=== PATIENT | male | born 1975 | race Caucasian/White ===

== ENCOUNTER 2016-06-16 13:10 | Emergency (ER) | payer BC, OTHER ==
[2016-06-16 13:58] VITALS: RESP 20
[2016-06-16] MEDS ORDERED: MORPHINE SULFATE 4 MG/ML SYRINGE IV STA (15:35)
[2016-06-16] MEDS ORDERED: ONDANSETRON 4 MG/2 ML VIAL IVP STA (15:35)
[2016-06-16] MEDS ORDERED: RX INFO: IV CONTRAST WAS GIVEN 1 EACH MISC MISCELLANE PRN (15:35)
[2016-06-16] MEDS ORDERED: METOCLOPRAMIDE 5 MG/ML 2 ML VIAL IVP STA (15:35)
[2016-06-16] MEDS ORDERED: SODIUM CHLORIDE 0.9% 1,000 ML IV STA ×2 (15:35)
[2016-06-16 16:14] LABS: Appearance,Urine Clear (Clear); Bacteria,Urine Rare /hpf; Basophils % (A) 0 %; Bilirubin,Urine Negative (Negative); CH 33.6; CHCM 34.6; Eosinophils # (A) 0.1 k/uL (0-0.7); Eosinophils % (A) 1 %; Glucose,Urine (UA) Negative (Negative); HCT 54.9 % (39.0-53.0); HDW 2.79; HGB 18.6 gm/dL (13.0-17.5); Ketones,Urine Trace (Negative); Leukocyte Esterase,Urine Negative (Negative); Luc # (Auto) 0.15; Luc % (Auto) 1; Lymphocytes # (A) 0.7 k/uL (1.0-4.8); Lymphocytes % (A) 5 %; MCHC 33.9 g/dL (31.0-37.0); MCV 97.5 fL (80.0-100.0); Monocytes # (A) 0.5 k/uL (0-1.0); Monocytes % (A) 4 %; Mucus,Urine Rare /hpf; Neutrophils # (A) 11.6 k/uL (1.3-7.7); Neutrophils % (A) 89 %; Nitrite,Urine Negative (Negative); Particle Count 3125; Protein,Urine 1+ (Negative); RBC 5.63 m/uL (4.30-5.90); RBC,Urine 1 /hpf (0-5); RDW 12.8 % (11.5-15.5); Specific Gravity,Urine 1.019 (1.001-1.035); Sperm,Urine Occasional /hpf; Squamous Epithelial Cell,Urine <1 /hpf (0-4); UA Billing (MACRO vs. MICRO) MICRO; WBC (Perox) 13.47; WBC,Urine 1 /hpf (0-5)
--- NOTE | 2016-06-16 16:21 | XR ---
EXAMINATION TYPE: XR chest 2V DATE OF EXAM: 06/16/2016 4:08 PM COMPARISON: NONE HISTORY: Vomiting, asthma and pain TECHNIQUE: Frontal and lateral views of the chest are obtained. FINDINGS: There is no focal air space opacity, pleural effusion, or pneumothorax seen. The cardiac silhouette size is within normal limits. There is bronchial wall thickening. The osseous structures are intact. IMPRESSION: Correlate for reactive airways disease, follow-up as indicated
[2016-06-16 16:24] LABS: ALT 57 U/L (21-72); AST 32 U/L (17-59); Alkaline Phosphatase 53 U/L (38-126); Amylase 75 U/L (30-110); Anion Gap 12 mmol/L; Blood Urea Nitrogen 13 mg/dL (9-20); Calcium 9.6 mg/dL (8.4-10.2); Carbon Dioxide 26 mmol/L (22-30); Chloride 104 mmol/L (98-107); Glucose 105 mg/dL (74-99); Non-African American GFR(MDRD) >60 (>60 ml/min/1.73 sqM); Potassium 4.3 mmol/L (3.5-5.1); Sodium 142 mmol/L (137-145); Total Bilirubin 1.2 mg/dL (0.2-1.3); Total Protein 7.9 g/dL (6.3-8.2)
--- NOTE | 2016-06-16 16:42 | CT ---
EXAMINATION TYPE: CT abdomen pelvis w con DATE OF EXAM: 06/16/2016 4:30 PM COMPARISON: 12/03/2015 HISTORY: 41-year-old male with abdominal pain and vomiting. TECHNIQUE: Contiguous axial scanning of the abdomen and pelvis following administration of 100 ml Omn ipaque 300 IV contrast. Delayed images through the kidneys and coronal/sagittal reconstructions perf ormed. CT DLP: 806.3 mGycm Automated exposure control for dose reduction was used. FINDINGS: Heart is normal size without pericardial effusion. There is a tiny hiatal hernia. Some strandy atelec tasis at the lung bases without pleural effusion. Relatively diminished attenuation of the hepatic parenchyma on portal venous phase in comparison to t he spleen suggests fatty infiltration. No biliary ductal dilatation. Portal venous system is patent. There is a diverticulum of the second portion of the duodenum projecting into the pancreatic head reg ion. Gallbladder, adrenal glands, kidneys, spleen, pancreas appear within normal limits. Scattered nonenlarged and a few borderline enlarged mesenteric lymph nodes measuring up to 6 mm, mylene nal image 37. Tiny fatty umbilical hernia. Normal appendix. Small mesenteric lymph nodes are noted near the cecum. There is mild to moderate sto ol in the colon and prominent fluid-filled small bowel loops in the mid to lower abdomen. There may b e some mild circumferential wall thickening of the distal sigmoid or this could relate to incomplete distention. Circumferential bladder wall thickening is also present. No abnormal fluid collection in the pelvis o r pelvic lymphadenopathy seen. Bones: There can deformities at the femoral head neck junctions with PA reflect femoral acetabular im pingement syndrome and can be correlated with physical exam testing. No osseous destructive process. IMPRESSION: 1. SOME PROMINENT FLUID-FILLED SMALL BOWEL LOOPS IN THE LOWER ABDOMEN AND PELVIS COULD REFLECT ENTERI TIS, GASTROENTERITIS. 2. ADDITIONALLY MILD DISTAL SIGMOID COLITIS VERSUS APPARENT WALL THICKENING DUE TO UNDERDISTENTION. 3. THERE IS MODERATE CIRCUMFERENTIAL BLADDER WALL THICKENING AND CORRELATION SHOULD BE MADE FOR CHRON IC BLADDER WALL HYPERTROPHY OR CYSTITIS. 4. HEPATIC STEATOSIS. CORRELATE WITH LFT's, LIPID PROFILE, INCREASED RISK FACTORS.
--- NOTE | 2016-06-16 18:01 | ED ---
General Adult HPI - General Chief complaint: Nausea/Vomiting/Diarrhea Stated complaint: Vomiting Time Seen by Provider: 06/16/16 15:29 Source: patient Mode of arrival: ambulatory - History of Present Illness Initial comments: This 41-year-old white male presents with a complaint of nausea and vomiting. This started at approximately 8:30 this morning and he is had 12+ episodes of vomiting. He states that it was brown and yellowish in nature. He apparently vomited quite vigorously and also is having some bilateral rib pain. He's had some mild lower abdominal cramping as well. He denies any actual diarrhea or fevers. He denies any blood in his vomitus. No other complaints or modifying factors. He apparently was exposed to someone 2 days ago that had gastroenteritis. - Related Data Home Medications Medication Instructions Recorded Confirmed Allopurinol [Zyloprim] 100 mg PO DAILY 12/03/15 06/16/16 Cetirizine HCl [Zyrtec] 10 mg PO DAILY 12/03/15 06/16/16 Cyclobenzaprine [Flexeril] 10 mg PO HS 12/03/15 06/16/16 Fluticasone Nasal [place] [Flonase 1 spray EA NOSTRIL DAILY 12/03/15 06/16/16 Nasal [place]] Gabapentin [Neurontin] 300 mg PO TID PRN 12/03/15 06/16/16 Omeprazole 20 mg PO DAILY 12/03/15 06/16/16 oxyCODONE-APAP 10-325MG [Percocet 1 tab PO BID PRN 12/03/15 06/16/16 10-325 mg] Albuterol Inhaler [Ventolin Hfa 1 - 2 puff INHALATION RT-Q6H PRN 06/16/16 Inhaler] Albuterol Nebulized [Ventolin 2.5 mg INHALATION RT-Q4H PRN 06/16/16 06/16/16 Nebulized] L.acidoph,Paracasei, B.lactis 1 cap PO DAILY 06/16/16 06/16/16 [Probiotic] Previous Rx's Medication Instructions Recorded Dicyclomine [Bentyl] 20 mg PO QID PRN #20 tablet 06/16/16 Ondansetron [Zofran ODT] 8 mg PO Q8HR PRN #12 tab 01/24/17 Allergies Allergy/AdvReac Type Severity Reaction Status Date / Time No Known Allergies Allergy Verified 06/16/16 15:17 Review of Systems ROS Statement: Those systems with pertinent positive or pertinent negative responses have been documented in the HPI. ROS Other: All systems not noted in ROS Statement are negative. Past Medical History Past Medical History: Asthma Additional Past Medical History / Comment(s): diverticulitis History of Any Multi-Drug Resistant Organisms: None Reported Past Surgical History: No Surgical Hx Reported Past Psychological History: No Psychological Hx Reported Smoking Status: Former smoker Past Alcohol Use History: Occasional Past Drug Use History: None Reported General Exam - General Exam Comments Initial Comments: GENERAL: The patient is well nourished and well hydrated. VITAL SIGNS: Heart rate, blood pressure, respiratory rate reviewed as recorded in nurse's notes. EYES: Pupils are round and reactive. Extraocular movements are intact. No conjunctival / lid redness or swelling. ENT: No external evidence of injury, swelling, or ecchymosis. Airway is patent. Throat is clear. NECK: Nontender. No swelling or evidence of injury. No subcutaneous emphysema. Trachea is midline. No thyroid mass. HEART: Regular rate and rhythm. Good peripheral pulses. LUNGS/CHEST: Breath sounds clear and equal bilaterally. No rales, rhonchi, or wheezes. No ecchymosis, subcutaneous emphysema, or tenderness. ABDOMEN: There is very minimal tenderness noted to the bilateral lower abdomen. Abdomen is soft. No palpable masses or organomegaly. No peritoneal signs. No abdominal wall swelling or ecchymosis. EXTREMITIES: No extremity tenderness. Normal muscle tone and function. No thoracolumbar tenderness. NEUROLOGIC: Sensation is grossly intact. Cranial nerve exam reveals face is symmetrical, tongue is midline, speech is clear. SKIN: No abrasions or ecchymosis is noted. No induration or masses noted. PSYCHIATRIC: Alert and oriented. Appropriate behavior and judgment. Course Vital Signs 06/16/16 13:55 Temperature 98.1 F Pulse Rate 123 H Respiratory 20 Rate Blood Pressure 117/77 O2 Sat by Pulse 98 Oximetry Medical Decision Making - Medical Decision Making The patient was seen and examined. An IV was started and he was thoroughly hydrated. He received some Zofran and Reglan for the nausea. He is feeling remarkably improved on recheck. He had a computed tomography scan of the abdomen and pelvis which shows evidence of gastroenteritis. Is a questionable sigmoid colitis but it is felt as though this is doubtful as he is not having any diarrhea. They also see some bladder wall thickening but there is no current evidence of urinary infection. They also note hepatic steatosis per radiology. His labs show a slight elevation of his white count which I will see regularly and a gastroenteritis. His urine shows some ketones and sperm. Overall, it is felt as though his symptoms primarily are related to gastroenteritis which is been epidemic in her region recently. Is felt as though he is stable for discharge. He understands and agrees. Diet therapy is discussed and he lives in no distress. - Lab Data Result diagrams: 06/16/16 15:59 06/16/16 15:59 Lab Results 06/16/16 06/16/16 06/16/16 Range/Units 15:59 15:59 15:59 WBC 13.0 H (3.8-10.6) k/uL RBC 5.63 (4.30-5.90) m/uL Hgb 18.6 H (13.0-17.5) gm/dL Hct 54.9 H (39.0-53.0) % MCV 97.5 (80.0-100.0) fL MCH 33.0 (25.0-35.0) pg MCHC 33.9 (31.0-37.0) g/dL RDW 12.8 (11.5-15.5) % Plt Count 185 (150-450) k/uL Neutrophils % 89 % Lymphocytes % 5 % Monocytes % 4 % Eosinophils % 1 % Basophils % 0 % Neutrophils # 11.6 H (1.3-7.7) k/uL Lymphocytes # 0.7 L (1.0-4.8) k/uL Monocytes # 0.5 (0-1.0) k/uL Eosinophils # 0.1 (0-0.7) k/uL Basophils # 0.0 (0-0.2) k/uL Sodium 142 (137-145) mmol/L Potassium 4.3 (3.5-5.1) mmol/L Chloride 104 (98-107) mmol/L Carbon Dioxide 26 (22-30) mmol/L Anion Gap 12 mmol/L BUN 13 (9-20) mg/dL Creatinine 0.97 (0.66-1.25) mg/dL Est GFR (MDRD) Af Amer >60 (>60 ml/min/1.73 sqM) Est GFR (MDRD) Non-Af >60 (>60 ml/min/1.73 sqM) Glucose 105 H (74-99) mg/dL Calcium 9.6 (8.4-10.2) mg/dL Total Bilirubin 1.2 (0.2-1.3) mg/dL AST 32 (17-59) U/L ALT 57 (21-72) U/L Alkaline Phosphatase 53 (38-126) U/L Total Protein 7.9 (6.3-8.2) g/dL Albumin 4.8 (3.5-5.0) g/dL Amylase 75 (30-110) U/L Lipase 288 (23-300) U/L Urine Color Yellow Urine Appearance Clear (Clear) Urine pH 7.0 (5.0-8.0) Ur Specific [place] 1.019 (1.001-1.035) Urine Protein 1+ H (Negative) Urine Glucose (UA) Negative (Negative) Urine Ketones Trace H (Negative) Urine Blood Negative (Negative) Urine Nitrate Negative (Negative) Urine Bilirubin Negative (Negative) Urine Urobilinogen 2.0 (<2.0) mg/dL Ur Leukocyte Esterase Negative (Negative) Urine RBC 1 (0-5) /hpf Urine WBC 1 (0-5) /hpf Ur Squamous Epith Cells <1 (0-4) /hpf Urine Bacteria Rare H (None) /hpf Urine Mucus Rare H (None) /hpf Urine Sperm Occasional H (None) /hpf Disposition Clinical Impression: Dehydration, Gastroenteritis, Nausea and vomiting Disposition: HOME SELF-CARE Condition: Good Instructions: Acute Nausea and Vomiting (ED), Gastroenteritis (ED) Prescriptions: Dicyclomine [Bentyl] 20 mg PO QID PRN #20 tablet PRN Reason: Pain Ondansetron [Zofran ODT] 8 mg PO Q8HR PRN #12 tab PRN Reason: Nausea Referrals: Fareed Mazariegos MD [Primary Care Provider] - 1-2 days Time of Disposition: 18:00
[2016-06-16 18:12] VITALS: BP 122/83; PULSE 105; TEMP 97.9
== END 2016-06-16 18:10 | disposition home or self-care (01) ==
LOC: EC 13:10
DX: E86.0 Dehydration (principal); K52.9 Noninfective gastroenteritis and colitis, unspecified; Z79.899 Other long term (current) drug therapy; Z79.51 Long term (current) use of inhaled steroids; Z87.891 Personal history of nicotine dependence; K76.0 Fatty (change of) liver, not elsewhere classified
CPT/HCPCS: 36415; 80053; 82150; 83690; 85025; 81001; 71020; 74177; 99284; J2270; J2765; J2405; Q9967

== ENCOUNTER 2017-08-26 14:10 | Inpatient (IN) | payer BC ==
[2017-08-26] MEDS ORDERED: ALBUTEROL NEBULIZED 2.5 MG/3 ML INHALATION PRN ×2 (16:36→16:39)
[2017-08-26] MEDS ORDERED: ACETAMINOPHEN TAB 325 MG TAB PO PRN (16:42)
[2017-08-26 17:08] LABS: Basophils % (A) 1 %; Eosinophils # (A) 0.1 k/uL (0-0.7); Eosinophils % (A) 2 %; HCT 50.7 % (39.0-53.0); HGB 17.1 gm/dL (13.0-17.5); Lymphocytes % (A) 20 %; MCH 31.3 pg (25.0-35.0); MCHC 33.7 g/dL (31.0-37.0); MCV 92.8 fL (80.0-100.0); Mean Platelet Volume 7.7; Monocytes # (A) 0.3 k/uL (0-1.0); Monocytes % (A) 6 %; Neutrophils # (A) 3.5 k/uL (1.3-7.7); Neutrophils % (A) 69 %; Platelet Count 181 k/uL (150-450); RBC 5.46 m/uL (4.30-5.90); RDW 12.8 % (11.5-15.5); WBC 5.1 k/uL (3.8-10.6)
[2017-08-26 17:10] LABS: Glucose,Whole Blood 115 mg/dL (75-99)
[2017-08-26 17:45] LABS: ALT 40 U/L (21-72); AST 26 U/L (17-59); Alkaline Phosphatase 49 U/L (38-126); Anion Gap 13 mmol/L; Blood Urea Nitrogen 15 mg/dL (9-20); Calcium 9.6 mg/dL (8.4-10.2); Carbon Dioxide 25 mmol/L (22-30); Chloride 105 mmol/L (98-107); Glucose 89 mg/dL (74-99); Sodium 143 mmol/L (137-145); Total Bilirubin 0.6 mg/dL (0.2-1.3); Total Protein 6.7 g/dL (6.3-8.2)
[2017-08-26] MEDS: SODIUM CHLORIDE 0.9% 1,000 ML IV SCH (17:49)
[2017-08-26 18:13] VITALS: BMI 29.1
[2017-08-26] MEDS: INSULIN ASPART 100 UNIT/ML 1 ML 10 ML VIAL SQ SCH ×2 (18:22→21:20)
[2017-08-26] MEDS: cefTRIAXone IN SWFI 1,000 MG/10 ML SYRINGE IVP SCH (18:22)
[2017-08-26] MEDS: ALBUTEROL NEBULIZED 2.5 MG/3 ML INHALATION SCH (19:27)
[2017-08-26 21:01] LABS: Glucose,Whole Blood 126 mg/dL (75-99)
[2017-08-26] MEDS: BACLOFEN 10 MG TAB PO SCH (21:45)
[2017-08-26] MEDS: LACTOBACILLUS ACIDOPH & BULGAR 1 EACH PACKET PO SCH (21:45)
[2017-08-26] MEDS: methylPREDNISolone SOD SUCCI 125 MG/2 ML VIAL IV SCH (23:33)
[2017-08-27] MEDS: SODIUM CHLORIDE 0.9% 1,000 ML IV SCH ×3 (04:17→20:51)
[2017-08-27 07:03] LABS: Glucose,Whole Blood 164 mg/dL (75-99)
[2017-08-27] MEDS: ALBUTEROL NEBULIZED 2.5 MG/3 ML INHALATION SCH ×4 (07:57→22:03)
[2017-08-27] MEDS: ALLOPURINOL 100 MG TAB PO SCH (08:08)
[2017-08-27] MEDS: methylPREDNISolone SOD SUCCI 125 MG/2 ML VIAL IV SCH ×3 (08:08→23:13)
[2017-08-27] MEDS: LACTOBACILLUS ACIDOPH & BULGAR 1 EACH PACKET PO SCH ×2 (08:08→22:13)
[2017-08-27] MEDS: LORATADINE 10 MG TAB PO SCH (08:08)
[2017-08-27] MEDS: BACLOFEN 10 MG TAB PO SCH ×2 (08:08→22:13)
[2017-08-27] MEDS: PANTOPRAZOLE 40 MG TABLET PO SCH (08:08)
[2017-08-27] MEDS: AZITHROMYCIN 500 MG in SODIUM CHLORIDE 0.9% 250 ML IVPB SCH (08:08)
[2017-08-27] MEDS: INSULIN ASPART 100 UNIT/ML 1 ML 10 ML VIAL SQ SCH ×4 (08:09→20:41)
[2017-08-27] MEDS: traMADol 50 MG TAB PO PRN (08:21)
[2017-08-27] MEDS: FLUTICASONE 50MCG/SPRAY NASAL 16GM EA NOSTRIL SCH (09:01)
--- NOTE | 2017-08-27 09:02 | HP ---
HISTORY AND PHYSICAL DATE OF SERVICE: 08/26/2017 CHIEF COMPLAINT: Shortness of breath, cough, and weakness. This is a 42-year-old white male that came in my office with shortness of breath, cough, and weakness with O2 saturation 88 was sitting and decreased to be 84 with minimal activity. He had been short of breath. Had been coughing, weak, and low-grade temp. Of interest to me on physical examination was the coarse amount of not only hard coughing but also copious amount of initial colored phlegm that was brought up. He has a long time past history of bronchial asthma, which has been stable. He has a history of gout, GE reflux, and he has some severe lumbar degenerative disc disease and has been operated on previously. ALLERGIES: His allergies are none. MEDICATIONS: 1. Allopurinol 100, 1 a.m. 2. Omeprazole 20, 1 a.m. 3. Zyrtec 24 hour a.m. 4. Ventolin inhaler or updraft up to 4 times a day. 5. Flonase 50 mg at bedtime. 6. Tylenol at bedtime for back pain. SURGICAL HISTORY: Lumbar discectomy and stabilization completed 2015. FAMILY HISTORY: He has a mother with a history of severe lymphangitis. Father has severe osteoarthritis. He has a sister with asthma and hypothyroid disease. SOCIAL HISTORY: Occasional cigar smoker. Does not inhale per patient. No alcohol. No illicit drug use. Again, he works as a . LABS: WBC is 5.1, hemoglobin is 17. Sodium 143, potassium is 4, creatinine is 1, BUN 14. REVIEW OF SYSTEMS: EYES: Pupils same and he does wear glasses. ENT: Says he has dry mouth. Neck is negative. CHEST: Shortness of breath and cough. CARDIAC: Plus palpitations, plus shortness of breath. No orthopnea. No paroxysmal nocturnal dyspnea. No true chest pain. No history of myocardial infarction. GI: Decreased appetite, but no nausea, no vomiting, no diarrhea, no constipation. No hematemesis, melena or hematochezia. : He says he has had decrease in urination. NEUROMUSCULAR: He expressed the concept of bad back pain, always very difficult to get comfortable lying in bed, but he is a security police officer. Continues to walk all day. Just pain in his buttocks to the mid part of his upper legs with walking from previous lumbar degenerative disc disease. INTEGUMENTARY: Has been negative. ALLERGY: He has had long-standing allergies of which chronic nasal spray has worked well for him. PHYSICAL EXAMINATION: Upon admission, blood pressure is 134/79, heart rate was in the 90s. He had laborious breathing between 18 and 22, temperature is 97.1 at this period of time. On 2 L, he is 96 O2 saturation. On inspection, patient is having some laborious breathing. EYES: Pupils are equal, round, reactive to light and accommodation. ENT shows a very dry mouth. NECK: Supple with midline trachea. CHEST: He has got some coarse rhonchi. He has wheezes throughout with some decreased breath sounds throughout. Heart sinus rhythm with no murmur. ABDOMEN: Soft, nontender with no organomegaly. Lower extremities are basically decreased pulses, decreased upper extremity muscle strength and on inspection, he has a smaller quad on the right than the left, which is still indicative of his previous degenerative disc disease causing initial herniation and he has yet to reverse that atrophy. His pulses in the lower extremities were also decreased in posterior tibialis. PSYCHIATRIC: He is not anxious. He is not nervous. ASSESSMENT: 1. Pneumonia. 2. Acute asthma on chronic asthma. 3. History of gout. 4. Gastroesophageal reflux. PLAN: Continue with the same medications accordingly. Please refer to my orders. MMODL / IJN: [id number] /
--- NOTE | 2017-08-27 09:10 | PN ---
PROGRESS NOTE DATE OF SERVICE: 08/27/2017 The patient is feeling better today. He has had less shortness of breath, less wheezing, but he says he has been very, very weak as it has been reiterated, he is admitted here with bronchial asthma, pneumonia, progressive shortness of breath and weakness and was placed in the hospital, started on IV steroids 60 mg q.6 hours, Rocephin and Zithromax and updrafts. At this period of time, he is doing quite well, but he appears to still be very weak. REVIEW OF SYSTEMS: EYES: He wears glasses. ENT: Still dry mouth. CHEST: He is coughing. He said more than yesterday and actually more wheezing. HEART: No palpitations. No chest pain. GI: Still just a decrease in appetite. NEUROMUSCULAR: He says his legs are weak. SKIN: No problems known, nothing to report. ALLERGIES: He says his nose is very stuffy, but he says the Flonase seems to help. PSYCHIATRIC: He is not anxious. He is not nervous. He said he is just occasionally taking off with using the updraft 4 times a day. PHYSICAL EXAMINATION: At this period of time, he has a blood pressure of 142/80, heart rate is now down in the 80s, respiratory rate is 16, and temperature is 97.2. EYES: Pupils are equal, round, react to light and accommodation. ENT showed tympanic membranes and pharynx to be negative. Neck is supple with a midline trachea. Chest is essentially clear to auscultation. Heart is sinus rhythm with no murmur. Abdomen is soft, nontender with no organomegaly. Chest has rhonchi EXTREMITIES: Negative. ASSESSMENT: 1. Pneumonia. 2. Chronic obstructive pulmonary disease. 3. Hypertension. Please refer to my orders. MMODL / IJN: [id number] /
--- NOTE | 2017-08-27 09:35 | P.PN ---
Progress Note - Text Progress Note Date: 08/27/17 Addendum to H/P: Patient had a chest x-ray completed at Dr. Mazariegos's office on 08/26/2017 revealing bilateral pneumonia. Due to pneumonia, asthma, and respiratory status the patient was directly admitted to the hospital from Dr. Mazariegos's office
--- NOTE | 2017-08-27 09:44 | P.CNPUL ---
History of Present Illness Consult date: 08/27/17 Reason for consult: dyspnea, cough, chest pain, pneumonia Chief complaint: Cuff congestion shortness of breath started 2-3 days ago History of present illness: 42-year-old nonsmoker male fairly in good state of health with a history of the asthma as a young child growing up however had no respiratory symptoms 3 days ago had upper respiratory type of process with cuff congestion shortness of breath has been slowly progressive becomes very short of breath coughing phlegm came into the hospital found to have bilateral perihilar pneumonia patient has been admitted into the hospital further evaluation and intervention and treatment, patient did have a flu shot this year, review of the data reveals that patient presented into primary care office with shortness of breath and cough and low oxygen saturation of only 88% did drop down to 84% with activity and exertion Review of Systems All systems: negative Past Medical History Past Medical History: Asthma, Osteoarthritis (OA) Additional Past Medical History / Comment(s): diverticulitis, spinal OA, arthritis in right knee, hips and hands History of Any Multi-Drug Resistant Organisms: None Reported Past Surgical History: No Surgical Hx Reported, Hernia Repair Additional Past Surgical History / Comment(s): Hernia repair as an Past Anesthesia/Blood Transfusion Reactions: No Reported Reaction Past Psychological History: No Psychological Hx Reported Smoking Status: Former smoker Past Alcohol Use History: Occasional Past Drug Use History: None Reported - Past Family History Mother Family Medical History: Asthma, Cancer, Hypertension Additional Family Medical History / Comment(s): Mother has hx of colon and rectal cancer Father Family Medical History: Hypertension Medications and Allergies Home Medications Medication Instructions Recorded Confirmed Type Allopurinol [Zyloprim] 100 mg PO DAILY 12/03/15 08/26/17 History Cetirizine HCl [Zyrtec] 10 mg PO DAILY 12/03/15 08/26/17 History Fluticasone Nasal [place] [Flonase 2 spray EA NOSTRIL DAILY 12/03/15 08/26/17 History Nasal [place]] Gabapentin [Neurontin] 300 mg PO TID PRN 12/03/15 08/26/17 History Omeprazole 20 mg PO DAILY 12/03/15 08/26/17 History Albuterol Inhaler [Ventolin Hfa 2 puff INHALATION RT-QID PRN 06/16/16 08/26/17 History Inhaler] Albuterol Nebulized [Ventolin 2.5 mg INHALATION RT-QID PRN 06/16/16 08/26/17 History Nebulized] L.acidoph,Paracasei, B.lactis 1 cap PO BID 06/16/16 08/26/17 History [Probiotic] Baclofen [Lioresal] 10 mg PO BID 08/26/17 08/26/17 History Clotrimazole/Betamethasone Dip 1 applic TOPICAL DAILY PRN 08/26/17 08/26/17 History [Lotrisone Cream] Indomethacin [Indocin] 100 mg PO DAILY 08/26/17 08/26/17 History Ondansetron [Zofran] 4 mg PO Q8HR PRN 08/26/17 08/26/17 History traMADol HCL [Ultram] 50 - 100 mg PO Q8H PRN 08/26/17 08/26/17 History Allergies Allergy/AdvReac Type Severity Reaction Status Date / Time No Known Allergies Allergy Verified 08/26/17 16:13 Physical Exam Vitals: Vital Signs Temp Pulse Pulse Pulse Resp BP Pulse Ox 08/27/17 08:08 72 08/27/17 07:58 68 08/27/17 05:36 97.2 F L 89 16 134/79 96 08/26/17 22:27 98.5 F 82 18 136/94 97 08/26/17 19:36 84 08/26/17 19:27 66 08/26/17 18:57 65 20 08/26/17 16:00 97.4 F L 98 18 143/90 96 Intake and Output 08/26/17 08/27/17 08/27/17 22:59 06:59 14:59 Other: Voiding Method Toilet # Voids 1 2 Weight 87 kg - Constitutional General appearance: average body habitus, cooperative, disheveled, mild distress , no acute distress - EENT Eyes: EOMI, PERRLA, normal appearance ENT: normal oropharynx - Neck Neck: normal ROM Carotids: bilateral: upstroke normal, bruit absent Thyroid: bilateral: normal size - Respiratory Respiratory: bilateral: CTA, rhonchi (On force expiration), wheezing (In forced expiration), prolonged expiration, negative: dullness, rales, prolonged inspiration - Cardiovascular Heart sounds: normal: S1, S2 - Neurologic Normal neuro exam Neurologic: CNII-XII intact - Musculoskeletal Musculoskeletal: gait normal, generalized weakness, strength equal bilaterally - Psychiatric Psychiatric: A&O x's 3, appropriate affect, intact judgment & insight Results - Laboratory Findings CBC and BMP: 08/26/17 16:51 08/26/17 16:51 Abnormal lab findings: Abnormal Labs 08/26/17 08/26/17 08/27/17 17:07 20:54 07:01 POC Glucose (mg/dL) 115 H 126 H 164 H - Diagnostic Findings Chest x-ray: report reviewed (Radiographic study chest x-ray verbal report on obtained from the primary service revealed hilar infiltrate) Assessment and Plan Assessment: Bilateral perihilar pneumonia Acute hypoxic respirator failure related to above History of chronic asthma with acute exacerbation History of gout 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
--- NOTE | 2017-08-27 10:20 | XR ---
EXAMINATION TYPE: XR chest 2V DATE OF EXAM: 08/27/2017 COMPARISON: 06/16/2016 TECHNIQUE: PA and lateral views submitted. HISTORY: Cough and pneumonia FINDINGS: There is a perihilar interstitial pattern patchy infiltrate in the right. Tiny left pleural effusion noted. No pneumothorax. Heart size stable. IMPRESSION: 1. Perihilar interstitial pattern can be seen with bronchitis, atypical pneumonia, interstitial pneum onitis or venous congestion correlate clinically.
[2017-08-27 11:55] LABS: Glucose,Whole Blood 230 mg/dL (75-99)
[2017-08-27 13:11] LABS: Hemoglobin A1C 5.1 % (4.0-6.0)
[2017-08-27] MEDS: cefTRIAXone IN SWFI 1,000 MG/10 ML SYRINGE IVP SCH (15:43)
[2017-08-27 17:28] LABS: Glucose,Whole Blood 124 mg/dL (75-99)
[2017-08-27 20:32] LABS: Glucose,Whole Blood 214 mg/dL (75-99)
[2017-08-28 07:31] LABS: Glucose,Whole Blood 169 mg/dL (75-99)
--- NOTE | 2017-08-28 07:53 | PN ---
PROGRESS NOTE This is a 42-year-old white male was admitted with evidence of pneumonia. He had wheezing and also a fair amount of shortness of breath. His O2 sats were in the 80s. At that time, he was placed in the hospital accordingly. REVIEW OF SYSTEMS: At this time: Does were glasses ENT. He has a very dry mouth. Chest: He is coughing, bringing up a fair amount of phlegm. Heart: He has no palpitations. No chest pain. GI: Decrease in appetite. Neuromuscular: His legs are weak. Skin is no problem with the skin allergy. He has always had chronic stuffy nose, uses Flonase. Psychiatric: He is not anxious or nervous. Occasionally, he is anxious but . PHYSICAL EXAMINATION: At this point, his blood pressure is 140/80, heart rate 80, respirations 17, temperature 97. Eyes: Pupils are equal, round, react to light and accommodation. ENT showed negative. NECK: Supple. Midline trachea. CHEST: Clear to auscultation. Heart is sinus rhythm with no murmur. Abdomen was soft, nontender with no organomegaly. Extremities are basically negative at this time. His skin is negative. Allergy today just of rhinorrhea. LABORATORY: Initial hematology just shows a white count of 5.1 with a hemoglobin of 17. Initial chemistries basically have been negative. No sputum for culture. ASSESSMENT: 1. Bilateral perihilar pneumonia. 2. Acute exacerbation of chronic obstructive pulmonary disease on chronic asthma. 3. History of gout. 4. History of generalized osteoarthritis. 5. Severe degenerative disc disease of the lumbar spine. Postoperatively. 6. History of gastroesophageal reflux disease. 7. Generalized allergies. PLAN: Will continue same medications accordingly. He is now ready to decrease his IV steroids from 60 every 8 to 40 every 8. Continue with the IV antibiotics with anticipation of probably discharge in the morning of tomorrow. MMODL / IJN: [id number] /
[2017-08-28] MEDS: FLUTICASONE 50MCG/SPRAY NASAL 16GM EA NOSTRIL SCH (08:26)
[2017-08-28] MEDS: methylPREDNISolone SOD SUCCI 125 MG/2 ML VIAL IV SCH (08:26)
[2017-08-28] MEDS: INSULIN ASPART 100 UNIT/ML 1 ML 10 ML VIAL SQ SCH ×4 (08:26→20:55)
[2017-08-28] MEDS: LACTOBACILLUS ACIDOPH & BULGAR 1 EACH PACKET PO SCH ×2 (08:26→20:07)
[2017-08-28] MEDS: AZITHROMYCIN 500 MG in SODIUM CHLORIDE 0.9% 250 ML IVPB SCH (08:27)
[2017-08-28] MEDS: PANTOPRAZOLE 40 MG TABLET PO SCH (08:27)
[2017-08-28] MEDS: ALLOPURINOL 100 MG TAB PO SCH (08:27)
[2017-08-28] MEDS: SODIUM CHLORIDE 0.9% 1,000 ML IV SCH ×2 (08:27→18:13)
[2017-08-28] MEDS: LORATADINE 10 MG TAB PO SCH (08:27)
[2017-08-28] MEDS: BACLOFEN 10 MG TAB PO SCH ×2 (08:27→20:07)
[2017-08-28] MEDS: ALBUTEROL NEBULIZED 2.5 MG/3 ML INHALATION SCH ×4 (08:31→21:15)
[2017-08-28] MEDS: traMADol 50 MG TAB PO PRN ×2 (08:38→20:10)
[2017-08-28 12:12] LABS: Glucose,Whole Blood 184 mg/dL (75-99)
--- NOTE | 2017-08-28 13:30 | XR ---
EXAMINATION TYPE: XR chest 2V DATE OF EXAM: 08/28/2017 HISTORY: eval pna. REFERENCE: Previous study dated 08/27/2017. FINDINGS: There is prominence of the interstitium in an perihilar pattern. This may have worsened sli ghtly. The heart is not enlarged. Pleural spaces are clear. IMPRESSION: WORSENING PERIHILAR INTERSTITIAL CHANGE WHICH MAY REFLECT BATWING EDEMA, ATYPICAL PNEUMONIA OR LESS L IKELY, BRONCHITIS.
--- NOTE | 2017-08-28 15:28 | P.PN ---
Subjective Progress Note Date: 08/28/17 Principal diagnosis: Left perihilar pneumonia, acute asthma exacerbation, tracheobronchitis and hypoxic respirator failure 08/28/2017, patient seen and evaluated examined is still very short of breath and congested especially on activity and exertion Gram stain and culture reviewed no significant predominance is off any organism has been noted, labs reviewed medications reviewed 42-year-old nonsmoker male fairly in good state of health with a history of the asthma as a young child growing up however had no respiratory symptoms 3 days ago had upper respiratory type of process with cuff congestion shortness of breath has been slowly progressive becomes very short of breath coughing phlegm came into the hospital found to have bilateral perihilar pneumonia patient has been admitted into the hospital further evaluation and intervention and treatment, patient did have a flu shot this year, review of the data reveals that patient presented into primary care office with shortness of breath and cough and low oxygen saturation of only 88% did drop down to 84% with activity and exertion Objective - Vital Signs Vital signs: Vital Signs Temp 97.7 F 08/28/17 07:00 Pulse 102 H 08/28/17 12:18 Resp 18 08/28/17 07:00 BP 110/65 08/28/17 07:00 Pulse Ox 95 08/28/17 08:31 Intake & Output 08/27/17 08/28/17 08/28/17 18:59 06:59 18:59 Intake Total 1000 1290 Balance 1000 1290 Intake: IV 1050 Azithromycin 500 mg In 250 Sodium Chloride 0.9% 250 ml @ 125 mls/hr IVPB DAILY MANDA Rx#:[id number] Sodium Chloride 0.9% 1, 800 000 ml @ 100 mls/hr IV . Q10H MANDA Rx#:[id number] Oral 1000 240 Other: Voiding Method Toilet # Voids 3 2 - Exam - Constitutional General appearance: average body habitus, cooperative, disheveled, mild distress , no acute distress - EENT Eyes: EOMI, PERRLA, normal appearance ENT: normal oropharynx - Neck Neck: normal ROM Carotids: bilateral: upstroke normal, bruit absent Thyroid: bilateral: normal size - Respiratory Respiratory: bilateral: CTA, rhonchi (On force expiration), wheezing (In forced expiration), prolonged expiration, negative: dullness, rales, prolonged inspiration - Cardiovascular Heart sounds: normal: S1, S2 - Neurologic Normal neuro exam Neurologic: CNII-XII intact - Musculoskeletal Musculoskeletal: gait normal, generalized weakness, strength equal bilaterally - Psychiatric Psychiatric: A&O x's 3, appropriate affect, intact judgment & insight - Labs CBC & Chem 7: 08/26/17 16:51 08/26/17 16:51 Labs: Abnormal Lab Results - Last 24 Hours (Table) 08/27/17 08/27/17 08/28/17 Range/Units 17:13 20:29 06:59 POC Glucose (mg/dL) 124 H 214 H 169 H (75-99) mg/dL 08/28/17 Range/Units 12:05 POC Glucose (mg/dL) 184 H (75-99) mg/dL Microbiology - Last 24 Hours (Table) 08/27/17 14:00 Gram Stain - Preliminary Sputum Assessment and Plan Assessment: Bilateral perihilar pneumonia, predominantly on the left pre-perihilar area Acute hypoxic respirator failure related to above History of chronic asthma with acute exacerbation History of gout 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
[2017-08-28] MEDS: methylPREDNISolone SOD SUCCI 40 MG/ML 1 ML VIAL IV SCH ×2 (16:41→23:49)
[2017-08-28] MEDS: cefTRIAXone IN SWFI 1,000 MG/10 ML SYRINGE IVP SCH (16:44)
[2017-08-28 17:19] LABS: Glucose,Whole Blood 180 mg/dL (75-99)
[2017-08-28 21:01] LABS: Glucose,Whole Blood 162 mg/dL (75-99)
[2017-08-29] MEDS: SODIUM CHLORIDE 0.9% 1,000 ML IV SCH ×2 (05:27→16:02)
[2017-08-29 07:23] LABS: Glucose,Whole Blood 131 mg/dL (75-99)
[2017-08-29] MEDS: ALBUTEROL NEBULIZED 2.5 MG/3 ML INHALATION SCH ×4 (07:51→20:10)
[2017-08-29] MEDS: INSULIN ASPART 100 UNIT/ML 1 ML 10 ML VIAL SQ SCH ×4 (09:12→22:00)
[2017-08-29] MEDS: LACTOBACILLUS ACIDOPH & BULGAR 1 EACH PACKET PO SCH ×2 (09:14→21:58)
[2017-08-29] MEDS: ALLOPURINOL 100 MG TAB PO SCH (09:14)
[2017-08-29] MEDS: PANTOPRAZOLE 40 MG TABLET PO SCH (09:15)
[2017-08-29] MEDS: AZITHROMYCIN 500 MG in SODIUM CHLORIDE 0.9% 250 ML IVPB SCH (09:15)
[2017-08-29] MEDS: LORATADINE 10 MG TAB PO SCH (09:15)
[2017-08-29] MEDS: methylPREDNISolone SOD SUCCI 40 MG/ML 1 ML VIAL IV SCH ×3 (09:15→23:15)
[2017-08-29] MEDS: BACLOFEN 10 MG TAB PO SCH ×2 (09:15→21:57)
[2017-08-29] MEDS: FLUTICASONE 50MCG/SPRAY NASAL 16GM EA NOSTRIL SCH (09:15)
[2017-08-29 12:27] LABS: Glucose,Whole Blood 127 mg/dL (75-99)
--- NOTE | 2017-08-29 14:04 | PN ---
PROGRESS NOTE This 42-year-old white male was admitted with evidence of pneumonia. He had wheezing and shortness of breath. His O2 sats were in the in the 80s with no activity. He was placed in the hospital accordingly. His x-ray showed evidence of bilateral perihilar pneumonia. He had a fair amount of wheezing that did not respond to outpatient updrafts. REVIEW OF SYSTEM: Eyes: Patient wears glasses. ENT: Has a very dry mouth and some periodontal disease. Heart: No palpitations. No chest pain. Respiratory: He had coughing. He had wheezing, fair amount of phlegm, shortness of breath with minimal activity. GI had a decreased appetite. No hematemesis, melena or hematochezia. his urination is without problem. Neuromuscular his legs are weak due to secondary lumbar stenosis. Allergy: Has severe allergies most of that are controlled well with his Flonase. PSYCHIATRIC: He is not anxious or nervous. No psychiatric disease in the past. PHYSICAL EXAMINATION: Alert, white male. Blood pressure 140/80, heart rate is in the 80s, respiratory rate today is 21, temperature is 97. Eyes: Pupils are equal, round, reactive to light accommodation. ENT showed tympanic membranes and pharynx to be negative. NECK: Supple with a midline trachea. Chest has wheezes and rhonchi throughout but much improved from yesterday. Heart sinus rhythm with no murmur. ABDOMEN: Soft, nontender with no organomegaly. No palpable masses. Extremities: He has good range of motion in his knees and his hips, hands and his wrists. Skin is negative. Allergy just the rhinorrhea. Psychiatric without evidence of depression or severe anxiety. LABORATORY DATA: Lab nothing new. Chest x-ray shows actually some worsening of the chest x-ray. ASSESSMENT: 1. Bilateral perihilar pneumonia. 2. Acute on chronic chronic obstructive pulmonary disease with chronic asthma. 3. History of gout. 4. History of generalized osteoarthritis. 5. Gastroesophageal reflux disease. PLAN: Continue his IV steroids. Continue his IV antibiotics. Continue on IV fluids. Prognosis is stable. Please refer to my orders. MMODL / IJN: [id number] /
[2017-08-29] MEDS: cefTRIAXone IN SWFI 1,000 MG/10 ML SYRINGE IVP SCH (17:17)
[2017-08-29 17:30] LABS: Glucose,Whole Blood 140 mg/dL (75-99)
[2017-08-29 20:50] LABS: Glucose,Whole Blood 169 mg/dL (75-99)
[2017-08-29] MEDS: traMADol 50 MG TAB PO PRN (21:57)
[2017-08-30] MEDS: SODIUM CHLORIDE 0.9% 1,000 ML IV SCH ×2 (03:04→21:39)
[2017-08-30] MEDS: ALBUTEROL NEBULIZED 2.5 MG/3 ML INHALATION SCH ×4 (07:21→19:35)
[2017-08-30 07:27] LABS: Glucose,Whole Blood 120 mg/dL (75-99)
[2017-08-30] MEDS: INSULIN ASPART 100 UNIT/ML 1 ML 10 ML VIAL SQ SCH ×4 (07:28→21:35)
[2017-08-30] MEDS ORDERED: methylPREDNISolone SOD SUCCI 125 MG/2 ML VIAL IV STA (07:44)
[2017-08-30] MEDS: BACLOFEN 10 MG TAB PO SCH ×2 (08:13→21:35)
[2017-08-30] MEDS: AZITHROMYCIN 500 MG in SODIUM CHLORIDE 0.9% 250 ML IVPB SCH (08:13)
[2017-08-30] MEDS: LACTOBACILLUS ACIDOPH & BULGAR 1 EACH PACKET PO SCH ×2 (08:13→21:35)
[2017-08-30] MEDS: LORATADINE 10 MG TAB PO SCH (08:13)
[2017-08-30] MEDS: PANTOPRAZOLE 40 MG TABLET PO SCH (08:13)
[2017-08-30] MEDS: ALLOPURINOL 100 MG TAB PO SCH (08:13)
[2017-08-30] MEDS: FLUTICASONE 50MCG/SPRAY NASAL 16GM EA NOSTRIL SCH (08:13)
[2017-08-30] MEDS: traMADol 50 MG TAB PO PRN ×2 (08:18→21:39)
--- NOTE | 2017-08-30 11:02 | P.PN ---
Subjective Progress Note Date: 08/30/17 Patient seen and examined on rounds with Dr. Mazariegos. patient is currently sitting up in bed receiving a breathing treatment. Patient continues to have frequent coughing. denies sputum production. patient remains on Rocephin and azithromycin. Patient remains on IV steroids: 40 mg every 8 hours. patient is afebrile. Patient remains on 3 L nasal cannula with oxygen saturations greater than 92%. patient denies chest pain or pressure. Denies nausea or vomiting. Denies pain or discomfort. Objective - Vital Signs Vital signs: Vital Signs Temp 97.1 F L 08/30/17 06:18 Pulse 80 08/30/17 07:30 Resp 16 08/30/17 06:18 BP 120/62 08/30/17 06:18 Pulse Ox 93 L 08/30/17 06:18 Intake & Output 08/29/17 08/30/17 08/30/17 18:59 06:59 18:59 Intake Total 1490 Balance 1490 Intake: IV 800 Sodium Chloride 0.9% 1, 800 000 ml @ 100 mls/hr IV . Q10H MANDA Rx#:[id number] Intake, IV Titration 250 Amount Azithromycin 500 mg In 250 Sodium Chloride 0.9% 250 ml @ 125 mls/hr IVPB DAILY MANDA Rx#:[id number] Oral 440 Other: Voiding Method Toilet # Voids 2 # Bowel Movements 1 - Exam GENERAL: This is a 42-year-old male in no apparent distress at the time of examination. Pleasant and cooperative. HEENT: Head is atraumatic, normocephalic. Pupils are equal, round, and reactive to light. Sclerae anicteric. Conjunctivae are clear. Mucus membranes of the mouth are moist. Neck is supple. RESPIRATORY: rhonchi throughout with expiratory wheezing. Frequent coughing noted. No use of accessory muscles. Patient maintaining oxygen saturation greater than 92%. No chest wall tenderness is noted on palpation or with deep breathing. CARDIOVASCULAR: Regular rate and rhythm. S1 and S2 noted. No systolic or diastolic murmur auscultated. No JVD noted. No S3 or S4 noted. GASTROINTESTINAL: No distention noted. Abdomen soft and round. Normal active bowel sounds auscultated x 4 quadrants. No pain or tenderness noted upon palpation. INTEGUMENTARY: No cyanosis. No jaundice. No rashes noted. No cellulitis noted. EXTREMITIES: 2+ peripheral pulses. No evidence of peripheral edema. No calf tenderness noted. NEUROLOGIC: Cranial nerves II-XII intact. PSYCHIATRIC: Awake, alert, and oriented X 3. Appropriate affect. Intact judgement and insight. - Labs CBC & Chem 7: 08/26/17 16:51 08/26/17 16:51 Labs: Abnormal Lab Results - Last 24 Hours (Table) 08/29/17 08/29/17 08/29/17 Range/Units 12:21 17:24 20:48 POC Glucose (mg/dL) 127 H 140 H 169 H (75-99) mg/dL 08/30/17 Range/Units 07:24 POC Glucose (mg/dL) 120 H (75-99) mg/dL Microbiology - Last 24 Hours (Table) 08/27/17 14:00 Gram Stain - Final Sputum Sputum Culture - Final Assessment and Plan Plan: ASSESSMENT: bilateral perihilar pneumonia, present on admission Acute exacerbation of chronic obstructive pulmonary disease with chronic asthma History of gout History of osteoarthritis Gastroesophageal reflux disease PLAN: pulmonary on consult. Appreciate recommendations and input Continue Rocephin and azithromycin Continue Solu-Medrol 40 mg every 8 hours. give one time dose of 80 mg this morning per Dr. Mazariegos [facility] as appropriate Monitor labs GI prophylaxis: Protonix 40 mg PO Daily DVT prophylaxis: encourage early ambulation Monitor vital signs and address as appropriate Discharge planning: Patient to return home when stable Further recommendations pending patient's course possible discharge within the next 24-48 hours Nurse practitioner note has been reviewed by physician. Signing provider agrees with the documented findings, assessment, and plan of care.
[2017-08-30 11:53] LABS: Glucose,Whole Blood 108 mg/dL (75-99)
[2017-08-30] MEDS: methylPREDNISolone SOD SUCCI 40 MG/ML 1 ML VIAL IV SCH (15:42)
[2017-08-30 16:48] LABS: Glucose,Whole Blood 209 mg/dL (75-99)
[2017-08-30] MEDS: cefTRIAXone IN SWFI 1,000 MG/10 ML SYRINGE IVP SCH (17:54)
--- NOTE | 2017-08-30 19:07 | P.PN ---
Subjective Progress Note Date: 08/29/17 (Late entry note) Principal diagnosis: Left perihilar pneumonia, acute asthma exacerbation, tracheobronchitis and hypoxic respirator failure 08/29/2017, patient seen eval examined still have intermittent cough congestion and shortness of breath patient goes into a wheezing episode on minimal activity and exertion his repeat chest x-ray reviewed and discussed with the patient at length, sputum studies laboratory data reviewed as well medications reviewed, patient is still significantly symptomatic not ready for tapering of his steroids for now 08/28/2017, patient seen and evaluated examined is still very short of breath and congested especially on activity and exertion Gram stain and culture reviewed no significant predominance is off any organism has been noted, labs reviewed medications reviewed 42-year-old nonsmoker male fairly in good state of health with a history of the asthma as a young child growing up however had no respiratory symptoms 3 days ago had upper respiratory type of process with cuff congestion shortness of breath has been slowly progressive becomes very short of breath coughing phlegm came into the hospital found to have bilateral perihilar pneumonia patient has been admitted into the hospital further evaluation and intervention and treatment, patient did have a flu shot this year, review of the data reveals that patient presented into primary care office with shortness of breath and cough and low oxygen saturation of only 88% did drop down to 84% with activity and exertion Objective - Vital Signs Vital signs: Vital Signs Temp 98.8 F 08/30/17 15:00 Pulse 78 08/30/17 16:12 Resp 16 08/30/17 15:00 BP 145/82 08/30/17 15:00 Pulse Ox 94 L 08/30/17 15:58 Intake & Output 08/30/17 08/30/17 08/31/17 06:59 18:59 06:59 Intake Total 1200 Balance 1200 Intake: Oral 1200 Other: Voiding Method Toilet # Voids 2 3 # Bowel Movements 1 - Exam - Constitutional General appearance: average body habitus, cooperative, disheveled, mild distress , no acute distress - EENT Eyes: EOMI, PERRLA, normal appearance ENT: normal oropharynx - Neck Neck: normal ROM Carotids: bilateral: upstroke normal, bruit absent Thyroid: bilateral: normal size - Respiratory Respiratory: bilateral: CTA, rhonchi (On force expiration), wheezing (In forced expiration), prolonged expiration, negative: dullness, rales, prolonged inspiration - Cardiovascular Heart sounds: normal: S1, S2 - Neurologic Normal neuro exam Neurologic: CNII-XII intact - Musculoskeletal Musculoskeletal: gait normal, generalized weakness, strength equal bilaterally - Psychiatric Psychiatric: A&O x's 3, appropriate affect, intact judgment & insight - Labs CBC & Chem 7: 08/26/17 16:51 08/26/17 16:51 Labs: Abnormal Lab Results - Last 24 Hours (Table) 08/29/17 08/30/17 08/30/17 Range/Units 20:48 07:24 11:37 POC Glucose (mg/dL) 169 H 120 H 108 H (75-99) mg/dL 08/30/17 Range/Units 16:47 POC Glucose (mg/dL) 209 H (75-99) mg/dL Assessment and Plan Assessment: Bilateral perihilar pneumonia, predominantly on the left pre-perihilar area Acute hypoxic respirator failure related to above History of chronic asthma with acute exacerbation History of gout Degenerative joint disease osteoarthritis especially of the spine Plan: IV fluids IV antibiotics Breathing treatments IV steroids Continue supportive care and deep breathing exercise Obtain sputum for Gram stain and culture Nasopharyngeal swab for influenza A and B Reviewed repeat chest x-ray noted to have left-sided perihilar pneumonia Time with Patient: Greater than 30
--- NOTE | 2017-08-30 19:09 | P.PN ---
Subjective Progress Note Date: 08/30/17 Principal diagnosis: Left perihilar pneumonia, acute asthma exacerbation, tracheobronchitis and hypoxic respirator failure 08/30/2017, patient seen and evaluated examined remains on IV antibiotics breathing treatment and steroids patient at rest has mild degree or shortness breath which gets worse on activity and exertion however severity appears to have improve, sputum studies reviewed, labs reviewed medications reviewed 08/29/2017, patient seen eval examined still have intermittent cough congestion and shortness of breath patient goes into a wheezing episode on minimal activity and exertion his repeat chest x-ray reviewed and discussed with the patient at length, sputum studies laboratory data reviewed as well medications reviewed, patient is still significantly symptomatic not ready for tapering of his steroids for now 08/28/2017, patient seen and evaluated examined is still very short of breath and congested especially on activity and exertion Gram stain and culture reviewed no significant predominance is off any organism has been noted, labs reviewed medications reviewed 42-year-old nonsmoker male fairly in good state of health with a history of the asthma as a young child growing up however had no respiratory symptoms 3 days ago had upper respiratory type of process with cuff congestion shortness of breath has been slowly progressive becomes very short of breath coughing phlegm came into the hospital found to have bilateral perihilar pneumonia patient has been admitted into the hospital further evaluation and intervention and treatment, patient did have a flu shot this year, review of the data reveals that patient presented into primary care office with shortness of breath and cough and low oxygen saturation of only 88% did drop down to 84% with activity and exertion Objective - Vital Signs Vital signs: Vital Signs Temp 98.8 F 08/30/17 15:00 Pulse 78 08/30/17 16:12 Resp 16 08/30/17 15:00 BP 145/82 08/30/17 15:00 Pulse Ox 94 L 08/30/17 15:58 Intake & Output 08/30/17 08/30/17 08/31/17 06:59 18:59 06:59 Intake Total 1200 Balance 1200 Intake: Oral 1200 Other: Voiding Method Toilet # Voids 2 3 # Bowel Movements 1 - Exam - Constitutional General appearance: average body habitus, cooperative, disheveled, mild distress , no acute distress - EENT Eyes: EOMI, PERRLA, normal appearance ENT: normal oropharynx - Neck Neck: normal ROM Carotids: bilateral: upstroke normal, bruit absent Thyroid: bilateral: normal size - Respiratory Respiratory: bilateral: CTA, rhonchi (On force expiration), wheezing (In forced expiration), prolonged expiration, no evidence of dullness, rales, however still have expiratory wheezing on prolonged inspiration and effort - Cardiovascular Heart sounds: normal: S1, S2 - Neurologic Normal neuro exam Neurologic: CNII-XII intact - Musculoskeletal Musculoskeletal: gait normal, generalized weakness, strength equal bilaterally - Psychiatric Psychiatric: A&O x's 3, appropriate affect, intact judgment & insight - Labs CBC & Chem 7: 08/26/17 16:51 08/26/17 16:51 Labs: Abnormal Lab Results - Last 24 Hours (Table) 08/29/17 08/30/17 08/30/17 Range/Units 20:48 07:24 11:37 POC Glucose (mg/dL) 169 H 120 H 108 H (75-99) mg/dL 08/30/17 Range/Units 16:47 POC Glucose (mg/dL) 209 H (75-99) mg/dL Assessment and Plan Assessment: Bilateral perihilar pneumonia, predominantly on the left pre-perihilar area Acute hypoxic respirator failure related to above History of chronic asthma with acute exacerbation History of gout Degenerative joint disease osteoarthritis especially of the spine Plan: IV fluids IV antibiotics Breathing treatments IV steroids Continue supportive care and deep breathing exercise Obtain sputum for Gram stain and culture Nasopharyngeal swab for influenza A and B Reviewed repeat chest x-ray noted to have left-sided perihilar pneumonia Time with Patient: Greater than 30
[2017-08-30 20:47] LABS: Glucose,Whole Blood 170 mg/dL (75-99)
[2017-08-31] MEDS: methylPREDNISolone SOD SUCCI 40 MG/ML 1 ML VIAL IV SCH ×2 (00:05→08:43)
[2017-08-31 07:51] LABS: Glucose,Whole Blood 126 mg/dL (75-99)
[2017-08-31 08:06] VITALS: BP 136/92; RESP 18; TEMP 97.4
[2017-08-31] MEDS: INSULIN ASPART 100 UNIT/ML 1 ML 10 ML VIAL SQ SCH (08:29)
[2017-08-31] MEDS: ALBUTEROL NEBULIZED 2.5 MG/3 ML INHALATION SCH (08:31)
[2017-08-31] MEDS: PANTOPRAZOLE 40 MG TABLET PO SCH (08:43)
[2017-08-31] MEDS: BACLOFEN 10 MG TAB PO SCH (08:43)
[2017-08-31] MEDS: LACTOBACILLUS ACIDOPH & BULGAR 1 EACH PACKET PO SCH (08:43)
[2017-08-31] MEDS: LORATADINE 10 MG TAB PO SCH (08:43)
[2017-08-31] MEDS: ALLOPURINOL 100 MG TAB PO SCH (08:43)
[2017-08-31 08:44] VITALS: PULSE 92
[2017-08-31] MEDS: FLUTICASONE 50MCG/SPRAY NASAL 16GM EA NOSTRIL SCH (08:44)
[2017-08-31] MEDS: traMADol 50 MG TAB PO PRN (08:49)
[2017-08-31] MEDS ORDERED: PNEUMOCOCCAL VACC-PNEUMOVAX 23 25 MCG/0.5 ML VIAL IM ONE (08:57)
[2017-08-31] MEDS ORDERED: AZITHROMYCIN 500 MG TAB PO SCH (09:00)
--- NOTE | 2017-08-31 09:37 | CDI ---
Last Revision, April 2017 Documentation Clarification Form Date: 08/31/17 0932 From: Cindy Isabel RN, CCDS Admit Date: 08/26/2017 3:26:00 PM Patient Name: Manfred Carter Visit Number: [id number] ATTENTION: The Clinical Documentation Specialists (CDI) and [facility] Coding Staff appreciate your assistance in clarifying documentation. Please respond to the clarification below the line at the bottom and electronically sign. The CDI & [facility] Coding staff will review the response and follow-up if needed. Please note: Queries are made part of the Legal Health Record. If you have any questions, please contact the author of this message via ITS. Dr. Fareed Mazariegos/Julissa Brothers [employer] Asthma is documented in the Attending progress and Pulmonary notes and requires further specificity. Patient history/risk factors: Bronchial asthma, GERD Clinical Indicators: CXR:"WORSENING PERIHILAR INTERSTITIAL CHANGE WHICH MAY REFLECT BATWING EDEMA, ATYPICAL PNEUMONIA OR LESS LIKELY, BRONCHITIS." Vital Signs: Temp 97.4, hr 98, RR 18, B/P 143/90, spo2 96% ra Treatment: Ventolin QID and PRN Solumedrol IVP tapering dose Consults: Pulmonary In your professional opinion, can you please further specify the following, if known? With: Acute Exacerbation Status asthmaticus Acute lower respiratory infection COPD (specify with or without exacerbation) Chronic obstructive bronchitis Other, please specify ___ Unable to determine Severity: Mild intermittent Mild persistent Moderate persistent Severe persistent Other, please specify ____ Unable to determine Form or Type: Cough variant Childhood Exercise induced bronchospasm Extrinsic allergic Idiosyncratic Intrinsic nonallergic Late-onset Mixed Other, please specify____ Unable to determine Please continue to document in your progress notes and discharge summary in order to capture severity of illness and risk of mortality. Include clinical findings that support your diagnosis. MTDD
--- NOTE | 2017-08-31 09:53 | CDI ---
Last Revision, April 2017 Documentation Clarification Form Date: 08/31/17 0949 From: Cindy Isabel RN, CCDS Admit Date: 08/26/2017 3:26:00 PM Patient Name: Manfred Carter Visit Number: [id number] ATTENTION: The Clinical Documentation Specialists (CDI) and [facility] Coding Staff appreciate your assistance in clarifying documentation. Please respond to the clarification below the line at the bottom and electronically sign. The CDI & [facility] Coding staff will review the response and follow-up if needed. Please note: Queries are made part of the Legal Health Record. If you have any questions, please contact the author of this message via ITS. Dr. Fareed Mazariegos/Kathrine Brothers CNP Pneumonia was documented in your notes and requires further specificity. History/Risk Factors: Bronchial asthma, GERD Clinical Indicators: WBC: 5.1 Left shift: 3.5 CXR: "WORSENING PERIHILAR INTERSTITIAL CHANGE WHICH MAY REFLECT BATWING EDEMA, ATYPICAL PNEUMONIA OR LESS LIKELY, BRONCHITIS." 08/30 Attending Lung/Breathing assessment: rhonchi throughout with expiratory wheezing. Frequent coughing noted. No use of accessory muscles. Patient maintaining oxygen saturation greater than 92%. No chest wall tenderness is noted on palpation or with deep breathing." Treatment: Antibiotics: Zithromax 500 mg IVPB QD, rocephin 1 gm IVPB Q 24 hrs O2: 2l NC Breathing TX: ventolin QID & PRN In order to capture the severity of condition, please clarify if the condition signifies and you are treating for: Aspiration Pneumonia, identify if: Due to solids or liquids Bacterial Pneumonia, specify causal organism (if known) Gram Negative Pneumonia Due to Strep Due to Staph Due to E. coli Other bacteria (please specify) Viral Pneumonia, specify casual organism (if known) Other, please specify Unable to determine Please continue to document in your progress notes and discharge summary in order to capture severity of illness and risk of mortality. Include clinical findings that support your diagnosis. MTDD
--- NOTE | 2017-08-31 09:58 | P.DS ---
Providers Date of admission: 08/26/17 15:26 Expected date of discharge: 08/31/17 Attending physician: Fareed Mazariegos Consults: 08/27/17 08:55 Consult Physician Routine Consulting Provider: Misael Jimenes Consult Reason/Comments: pneumonia Do you want consulting provider notified?: Yes Primary care physician: Fareed Mazariegos Hospital Course: 42-year-old male who was seen by Dr. Mazariegos on an outpatient basis for complaints of shortness of breath, cough, and weakness. The patient's oxygen saturation was found to be 88% at rest and decreased to 84% with activity. The patient also was having low-grade fevers. The patient was coughing frequently and having copious amounts of colored phlegm. An x-ray was completed at Dr. Mazariegos's office which revealed bilateral perihilar pneumonia. The patient was directly admitted to the hospital for treatment. Dr. Jimenes, pulmonary, was consulted. The patient was started on Rocephin and azithromycin. Sputum culture was completed which revealed normal respiratory nam. The patient was started on IV steroids and tapered as the patient tolerated. The patient had a repeat chest x-ray on 08/28/2017 which revealed worsening pneumonia, and the patient stayed inpatient for a few days longer until Dr. Mazariegos felt the patient was stable to be discharged home. On 08/30/2017 , the patient continued to have wheezing and rhonchi. He received a one time dose of 80mg solumedral and then resumed 40mg q 8 hours. The patients wheezing has resolved and he denies shortness of breath. Coughing has improved as well. He is on room air with oxygen saturations greater than 92%. He was deemed stable for discharge per Dr. Mazariegos. He is to follow up on an outpatient basis with Dr. Mazariegos and Dr. Jimenes. Prescriptions were sent to the patients preferred pharmacy for prednisone taper, zithromax, and albuterol neubilizers. The patient is to continue to hold his indomethacin until he finishes his prednisone taper. He is stable at the time of discharge. DISCHARGE DIAGNOSIS: Bilateral perihilar pneumonia, community aquired, present on admission, improved at the time of discharge Acute exacerbation of asthma, type unknown, improved at time of discharge Hypoxia, patient was 84-88% on room air on the day of admission at Dr. Toure office before he was directly admitted to the hospital, secondary to above, resolved at the time of discharge History of gout History of osteoarthritis Gastroesophageal reflux disease Nurse practitioner note has been reviewed by physician. Signing provider agrees with the documented findings, assessment, and plan of care. Patient Condition at Discharge: Stable Plan - Discharge Summary Discharge Rx Participant: Yes New Discharge Prescriptions: New Acetaminophen Tab [Tylenol] 650 mg PO Q6HR PRN tab PRN Reason: Fever And/ Or Pain Azithromycin [Zithromax] 500 mg PO DAILY #7 tab predniSONE See Taper PO DIRECTED #30 tab Continue Omeprazole 20 mg PO DAILY Gabapentin [Neurontin] 300 mg PO TID PRN PRN Reason: Pain Allopurinol [Zyloprim] 100 mg PO DAILY Fluticasone Nasal [place] [Flonase Nasal [place]] 2 spray EA NOSTRIL DAILY Cetirizine HCl [Zyrtec] 10 mg PO DAILY Albuterol Inhaler [Ventolin Hfa Inhaler] 2 puff INHALATION RT-QID PRN PRN Reason: Shortness Of Breath L.acidoph,Paracasei, B.lactis [Probiotic] 1 cap PO BID Baclofen [Lioresal] 10 mg PO BID Clotrimazole/Betamethasone Dip [Lotrisone Cream] 1 applic TOPICAL DAILY PRN PRN Reason: Skin Irritation Ondansetron [Zofran] 4 mg PO Q8HR PRN PRN Reason: Nausea traMADol HCL [Ultram] 50 - 100 mg PO Q8H PRN PRN Reason: Pain Changed Albuterol Nebulized [Ventolin Nebulized] 2.5 mg INHALATION QID #60 nebu Discontinued Indomethacin [Indocin] 100 mg PO DAILY Discharge Medication List Allopurinol [Zyloprim] 100 mg PO DAILY 12/03/15 [History] Cetirizine HCl [Zyrtec] 10 mg PO DAILY 12/03/15 [History] Fluticasone Nasal [place] [Flonase Nasal [place]] 2 spray EA NOSTRIL DAILY 12/03/15 [History] Gabapentin [Neurontin] 300 mg PO TID PRN 12/03/15 [History] Omeprazole 20 mg PO DAILY 12/03/15 [History] Albuterol Inhaler [Ventolin Hfa Inhaler] 2 puff INHALATION RT-QID PRN 06/16/16 [ History] L.acidoph,Paracasei, B.lactis [Probiotic] 1 cap PO BID 06/16/16 [History] Baclofen [Lioresal] 10 mg PO BID 08/26/17 [History] Clotrimazole/Betamethasone Dip [Lotrisone Cream] 1 applic TOPICAL DAILY PRN 10/08 [History] Ondansetron [Zofran] 4 mg PO Q8HR PRN 08/26/17 [History] traMADol HCL [Ultram] 50 - 100 mg PO Q8H PRN 08/26/17 [History] Acetaminophen Tab [Tylenol] 650 mg PO Q6HR PRN tab 08/31/17 [Rx] Albuterol Nebulized [Ventolin Nebulized] 2.5 mg INHALATION QID #60 nebu [Rx] Azithromycin [Zithromax] 500 mg PO DAILY #7 tab 08/31/17 [Rx] predniSONE See Taper PO DIRECTED #30 tab 08/31/17 [Rx] Follow up Appointment(s)/Referral(s): Fareed Mazariegos MD [Primary Care Provider] - 09/03/17 9:00 am Misael Jimenes MD [STAFF PHYSICIAN] - 09/07/17 (Unable to make appointment at this time. Please call to schedule. ) Patient Instructions/Handouts: Pneumonia (DC) Activity/Diet/Wound Care/Special Instructions: You may resume your indomethacin after you finish all prednisone tablets Lactose free diet. Limited activity until follow up with primary. Discharge/Stand Alone Forms: Work/School Release Discharge Disposition: HOME SELF-CARE
== END 2017-08-31 10:50 | disposition home or self-care (01) | DRG 193 ==
LOC: 4MS4W 15:26
PROVIDERS: ADMIT Family Medicine; ATTEND Family Medicine
DX: J18.9 Pneumonia, unspecified organism (principal); J96.01 Acute respiratory failure with hypoxia; J44.0 Chronic obstructive pulmonary disease with (acute) lower respiratory infection; J45.901 Unspecified asthma with (acute) exacerbation; J44.1 Chronic obstructive pulmonary disease with (acute) exacerbation; K21.9 Gastro-esophageal reflux disease without esophagitis; M10.9 Gout, unspecified; M51.36 Other intervertebral disc degeneration, lumbar region; J30.2 Other seasonal allergic rhinitis; M17.11 Unilateral primary osteoarthritis, right knee; M16.0 Bilateral primary osteoarthritis of hip; M19.042 Primary osteoarthritis, left hand; M19.041 Primary osteoarthritis, right hand; R53.1 Weakness; I10 Essential (primary) hypertension; M48.061 Spinal stenosis, lumbar region without neurogenic claudication; F17.290 Nicotine dependence, other tobacco product, uncomplicated; K05.6 Periodontal disease, unspecified; Z82.5 Family history of asthma and other chronic lower respiratory diseases; Z87.19 Personal history of other diseases of the digestive system; Z82.49 Family history of ischemic heart disease and other diseases of the circulatory system; Z80.0 Family history of malignant neoplasm of digestive organs; Z83.49 Family history of other endocrine, nutritional and metabolic diseases; Z82.61 Family history of arthritis; Z79.899 Other long term (current) drug therapy
CPT/HCPCS: 71046; 80053; 83036; 83880; 85025; 87070; 87205; 87502; 90732; 94640; 94760

== ENCOUNTER 2018-02-09 12:48 | Emergency (ER) | payer BC ==
[2018-02-09] MEDS ORDERED: KETOROLAC 30 MG/ML 1 ML VIAL IVP STA (14:22)
[2018-02-09] MEDS ORDERED: SODIUM CHLORIDE 0.9% 1,000 ML IV STA (14:22)
[2018-02-09] MEDS ORDERED: MECLIZINE 12.5 MG TAB PO STA (14:23)
[2018-02-09] MEDS ORDERED: ONDANSETRON 4 MG/2 ML VIAL IVP STA (14:23)
--- NOTE | 2018-02-09 14:49 | ED ---
Back Pain HPI - General Chief Complaint: Back Pain/Injury Stated Complaint: Back Pain, Vomiting Time Seen by Provider: 02/09/18 13:49 Source: patient, RN notes reviewed, old records reviewed Limitations: no limitations - History of Present Illness Initial Comments: Patient is a 43-year-old male presents emergency department today with chief complaint of lower back pain after seeing his PCP. They did a full workup to evaluate for his RA. UCG multiple range of motion within his back and lower extremity's upper extremities yesterday. He reports that he feels like he overdid it. He states that today he started to have some episodes of lightheadedness and then leave proceeded with vomiting. He reports he felt dizzy as if the room was slightly spinning. He has no specific history of vertigo. He relates that he's had multiple violent episodes of vomiting and minimal slowly subside. He states that he's had no fever or chills. Denies any chest pain. He stated that his back pain seems to be chronic after he is evaluated by his PCP and is doing the exercises as he did yesterday. Patient reports he's had no medication help with the pain because of the active vomiting. He denies any upper respiratory congestion or symptoms. - Related Data Home Medications Medication Instructions Recorded Confirmed Allopurinol [Zyloprim] 100 mg PO DAILY 12/03/15 02/09/18 Cetirizine HCl [Zyrtec] 10 mg PO DAILY 12/03/15 02/09/18 Fluticasone Nasal [place] [Flonase 2 spray EA NOSTRIL DAILY 12/03/15 02/09/18 Nasal [place]] Gabapentin [Neurontin] 300 mg PO TID PRN 12/03/15 02/09/18 Omeprazole 20 mg PO DAILY 12/03/15 02/09/18 Albuterol Inhaler [Ventolin Hfa 2 puff INHALATION RT-QID PRN 06/16/16 02/09/18 Inhaler] L.acidoph,Paracasei, B.lactis 1 cap PO BID 06/16/16 02/09/18 [Probiotic] Baclofen [Lioresal] 10 mg PO BID 08/26/17 02/09/18 Clotrimazole/Betamethasone Dip 1 applic TOPICAL DAILY PRN 08/26/17 02/09/18 [Lotrisone Cream] Ondansetron [Zofran] 4 mg PO Q8HR PRN 08/26/17 02/09/18 traMADol HCL [Ultram] 50 - 100 mg PO Q8H PRN 08/26/17 02/09/18 Albuterol Nebulized [Ventolin 2.5 mg INHALATION RT-QID 02/09/18 02/09/18 Nebulized] Indomethacin [Indocin] 50 mg PO BID 02/09/18 02/09/18 Previous Rx's Medication Instructions Recorded Ondansetron Odt [Zofran Odt] 4 mg PO Q8HR PRN #12 tab 02/09/18 Allergies Allergy/AdvReac Type Severity Reaction Status Date / Time No Known Allergies Allergy Verified 02/09/18 13:56 Review of Systems ROS Statement: Those systems with pertinent positive or pertinent negative responses have been documented in the HPI. ROS Other: All systems not noted in ROS Statement are negative. Past Medical History Past Medical History: Asthma, Osteoarthritis (OA) Additional Past Medical History / Comment(s): diverticulitis, spinal OA, arthritis in right knee, hips and hands History of Any Multi-Drug Resistant Organisms: None Reported Past Surgical History: Hernia Repair Additional Past Surgical History / Comment(s): Hernia repair as an Past Anesthesia/Blood Transfusion Reactions: No Reported Reaction Past Psychological History: No Psychological Hx Reported Smoking Status: Former smoker Past Alcohol Use History: Occasional Past Drug Use History: None Reported - Past Family History Mother Family Medical History: Asthma, Cancer, Hypertension Additional Family Medical History / Comment(s): Mother has hx of colon and rectal cancer Father Family Medical History: Hypertension General Exam - General Exam Comments Initial Comments: This is a 43-year-old male. Alert and oriented. No significant distress. Limitations: no limitations General appearance: alert, in no apparent distress Head exam: Present: atraumatic, normocephalic, normal inspection Eye exam: Present: normal appearance, PERRL, EOMI. Absent: scleral icterus, conjunctival injection, periorbital swelling ENT exam: Present: normal exam, mucous membranes moist Neck exam: Present: normal inspection. Absent: tenderness, meningismus, lymphadenopathy Respiratory exam: Present: normal lung sounds bilaterally. Absent: respiratory distress, wheezes, rales, rhonchi, stridor Cardiovascular Exam: Present: regular rate, normal rhythm, normal heart sounds. Absent: systolic murmur, diastolic murmur, rubs, gallop, clicks GI/Abdominal exam: Present: soft, normal bowel sounds. Absent: distended, tenderness, guarding, rebound, rigid Extremities exam: Present: normal inspection, full ROM, normal capillary refill. Absent: tenderness, pedal edema, joint swelling, calf tenderness Back exam: Present: normal inspection Neurological exam: Present: alert, oriented X3, CN II-XII intact Course Vital Signs 02/09/18 02/09/18 13:24 16:40 Temperature 97.7 F 98.7 F Pulse Rate 93 87 Respiratory 20 18 Rate Blood Pressure 131/82 141/85 O2 Sat by Pulse 98 96 Oximetry Medical Decision Making - Medical Decision Making Patient is a 43-year-old male presents emergency department today with chief complaint of lower back pain after seeing his PCP. They did a full workup to evaluate for his RA. UCG multiple range of motion within his back and lower extremity's upper extremities yesterday. He reports that he feels like he overdid it. He states that today he started to have some episodes of lightheadedness and then leave proceeded with vomiting. He reports he felt dizzy as if the room was slightly spinning. He has no specific history of vertigo. He relates that he's had multiple violent episodes of vomiting and minimal slowly subside. Patient has no significant tenderness on palpation over palpation of the lumbar spine. He reports that all of his back pain is chronic. Patient and the symptoms started on IV fluids, given nausea medication and Toradol. He still complains of some mild back pain at this time. Patient labwork also reviewed and negative for any acute process. Also give the Patient meclizine for concern for likely vertigo symptoms. He did describe the room is spinning. Patient continued to have some back pain. He was given a further dose of pain medication. After the fluids he states he feels much better at this time denies any dizziness or any other complaints. Discussed that he should have a follow-up with primary care physician. He does have an appointment on Wednesday with his PCP. Patient understands treatment plan will comply. Return parameters were discussed. - Lab Data Result diagrams: 02/09/18 15:15 02/09/18 15:15 Lab Results 09/19/18 09/19/18 09/19/18 Range/Units 15:15 15:15 15:58 WBC 9.4 (3.8-10.6) k/uL RBC 5.68 (4.30-5.90) m/uL Hgb 18.1 H (13.0-17.5) gm/dL Hct 54.7 H (39.0-53.0) % MCV 96.3 (80.0-100.0) fL MCH 31.8 (25.0-35.0) pg MCHC 33.0 (31.0-37.0) g/dL RDW 13.0 (11.5-15.5) % Plt Count 151 (150-450) k/uL Neutrophils % 79 % Lymphocytes % 14 % Monocytes % 4 % Eosinophils % 1 % Basophils % 0 % Neutrophils # 7.4 (1.3-7.7) k/uL Lymphocytes # 1.3 (1.0-4.8) k/uL Monocytes # 0.4 (0-1.0) k/uL Eosinophils # 0.1 (0-0.7) k/uL Basophils # 0.0 (0-0.2) k/uL Sodium 144 (137-145) mmol/L Potassium 4.6 (3.5-5.1) mmol/L Chloride 108 H (98-107) mmol/L Carbon Dioxide 27 (22-30) mmol/L Anion Gap 9 mmol/L BUN 14 (9-20) mg/dL Creatinine 0.92 (0.66-1.25) mg/dL Est GFR (CKD-EPI)AfAm >90 (>60 ml/min/1.73 sqM) Est GFR (CKD-EPI)NonAf >90 (>60 ml/min/1.73 sqM) Glucose 84 (74-99) mg/dL Calcium 9.5 (8.4-10.2) mg/dL Total Bilirubin 1.5 H (0.2-1.3) mg/dL AST 28 (17-59) U/L ALT 40 (21-72) U/L Alkaline Phosphatase 42 (38-126) U/L Total Protein 7.3 (6.3-8.2) g/dL Albumin 4.3 (3.5-5.0) g/dL Lipase 138 (23-300) U/L Urine Color Yellow Urine Appearance Clear (Clear) Urine pH 7.0 (5.0-8.0) Ur Specific [place] 1.013 (1.001-1.035) Urine Protein Trace H (Negative) Urine Glucose (UA) Negative (Negative) Urine Ketones Negative (Negative) Urine Blood Negative (Negative) Urine Nitrite Negative (Negative) Urine Bilirubin Negative (Negative) Urine Urobilinogen 3.0 (<2.0) mg/dL Ur Leukocyte Esterase Negative (Negative) Disposition Clinical Impression: Back pain, Nausea & vomiting Disposition: HOME SELF-CARE Condition: Good Instructions: Acute Low Back Pain (ED) Additional Instructions: Patient has follow-up with primary care physician. Return to emergency department if any alarming signs or symptoms occur. Take nausea medication as prescribed. Prescriptions: Ondansetron Odt [Zofran Odt] 4 mg PO Q8HR PRN #12 tab PRN Reason: Nausea Is patient prescribed a controlled substance at d/c from ED?: No Referrals: Fareed Mazariegos MD [Primary Care Provider] - 1-2 days Time of Disposition: 17:03
[2018-02-09 15:30] LABS: Basophils % (A) 0 %; Eosinophils # (A) 0.1 k/uL (0-0.7); Eosinophils % (A) 1 %; HCT 54.7 % (39.0-53.0); HGB 18.1 gm/dL (13.0-17.5); Lymphocytes # (A) 1.3 k/uL (1.0-4.8); Lymphocytes % (A) 14 %; MCH 31.8 pg (25.0-35.0); MCV 96.3 fL (80.0-100.0); Mean Platelet Volume 7.6; Monocytes # (A) 0.4 k/uL (0-1.0); Monocytes % (A) 4 %; Neutrophils # (A) 7.4 k/uL (1.3-7.7); Neutrophils % (A) 79 %; Platelet Count 151 k/uL (150-450); RBC 5.68 m/uL (4.30-5.90); WBC 9.4 k/uL (3.8-10.6)
[2018-02-09 15:41] LABS: ALT 40 U/L (21-72); AST 28 U/L (17-59); Albumin 4.3 g/dL (3.5-5.0); Alkaline Phosphatase 42 U/L (38-126); Anion Gap 9 mmol/L; Blood Urea Nitrogen 14 mg/dL (9-20); Calcium 9.5 mg/dL (8.4-10.2); Carbon Dioxide 27 mmol/L (22-30); Chloride 108 mmol/L (98-107); Glucose 84 mg/dL (74-99); Lipase 138 U/L (23-300); Potassium 4.6 mmol/L (3.5-5.1); Sodium 144 mmol/L (137-145); Total Bilirubin 1.5 mg/dL (0.2-1.3); Total Protein 7.3 g/dL (6.3-8.2)
[2018-02-09 16:03] LABS: Appearance,Urine Clear (Clear); Bilirubin,Urine Negative (Negative); Blood,Urine Negative (Negative); Color,Urine Yellow; Glucose,Urine (UA) Negative (Negative); Ketones,Urine Negative (Negative); Leukocyte Esterase,Urine Negative (Negative); Nitrite,Urine Negative (Negative); Protein,Urine Trace (Negative); Specific Gravity,Urine 1.013 (1.001-1.035)
[2018-02-09] MEDS ORDERED: MORPHINE SULFATE 4 MG/ML SYRINGE IVP STA (16:07)
[2018-02-09] MEDS ORDERED: diphenhydrAMINE 50 MG/ML 1 ML VIAL IVP STA (16:08)
[2018-02-09] MEDS ORDERED: METOCLOPRAMIDE 5 MG/ML 2 ML VIAL IVP STA (16:08)
[2018-02-09 16:41] VITALS: BP 141/85; PULSE 87; RESP 18; TEMP 98.7
== END 2018-02-09 17:21 | disposition home or self-care (01) ==
LOC: EC 12:48
DX: R11.2 Nausea with vomiting, unspecified (principal); M54.5 Low back pain; R42 Dizziness and giddiness; J45.909 Unspecified asthma, uncomplicated; M51.9 Unspecified thoracic, thoracolumbar and lumbosacral intervertebral disc disorder; M17.11 Unilateral primary osteoarthritis, right knee; M16.0 Bilateral primary osteoarthritis of hip; M19.041 Primary osteoarthritis, right hand; M19.042 Primary osteoarthritis, left hand; Z87.891 Personal history of nicotine dependence; Z79.1 Long term (current) use of non-steroidal anti-inflammatories (NSAID); Z79.51 Long term (current) use of inhaled steroids; Z79.899 Other long term (current) drug therapy; Z87.19 Personal history of other diseases of the digestive system
CPT/HCPCS: 36415; 80053; 83690; 85025; 81003; 99284; 96374; 96375 ×4; 96361; J2270; J1200; J2765; J2405; J1885

== ENCOUNTER 2018-08-03 14:15 | Emergency (ER) | payer OTHER ==
[2018-08-03 14:29] VITALS: BP 114/81; PULSE 110; RESP 16; TEMP 97.7
[2018-08-03] MEDS ORDERED: predniSONE 50 MG TAB PO STA (14:44)
[2018-08-03] MEDS ORDERED: KETOROLAC 60 MG/2 ML VIAL IM STA (14:44)
--- NOTE | 2018-08-03 15:25 | XR ---
EXAM TYPE: LUMBAR SPINE X RAY SERIES COMPARISON: NONE HISTORY: 18 TECHNIQUE: 3 views are submitted. FINDINGS: Alignment is anatomic. The pedicles are intact. The transverse processes are intact. There is no s pondylolysis or spondylolisthesis. Hypertrophic changes are seen with anterior spur formation. Most notably T11-T12. Suggestion of facet arthropathy L5-S1 no compression deformities. IMPRESSION: 1. Multilevel hypertrophic changes. If symptoms persist or there is concern for disc herniation corre late with MRI.
--- NOTE | 2018-08-03 15:46 | ED ---
General Adult HPI - General Chief complaint: Back Pain/Injury Stated complaint: back & leg pain Time Seen by Provider: 08/03/18 14:35 Source: patient, RN notes reviewed, old records reviewed Mode of arrival: wheelchair Limitations: no limitations - History of Present Illness Initial comments: 43-year-old male patient past medical history of chronic back pain, arthritis presents ED after exacerbation of chronic back pain. Patient points that he was carrying a 50 pound bag when he slipped, strained his back. This occured approximately 3 days ago. Patient states that he has had right paralumbar stiffness, pain extending into his posterior thigh. Patient was this is similar to back pain exacerbations in the past. Patient denies falling to the ground during this incident, had no trauma to head or neck. Patient denies any IV drug use, fevers chills, loss of bowel or bladder control, saddle anesthesia, or extremity weakness. Patient's is ambulatory with pain. Systemic: Pt denies fatigue, fever/chills, rash. Pt denies weakness, night sweats, weight loss. Neuro: Pt denies headache, visual disturbances, syncope or pre-syncope. HEENT: Pt denies ocular discharge or irritation, otalgia, rhinorrhea, pharyngitis or notable lymphadenopathy. Cardiopulmonary: Pt denies chest pain, SOB, heart palpitations, dyspnea on exertion. Abdominal/GI: Pt denies abdominal pain, n/v/d. : Pt denies dysuria, burning w/ urination, frequency/urgency. Denies new onset urinary or bowel incontinence. MSK: Pt denies loss of strength or function in extremities. Neuro: Pt denies new onset weakness, paresthesias. - Related Data Home Medications Medication Instructions Recorded Confirmed Allopurinol [Zyloprim] 100 mg PO DAILY 12/03/15 02/09/18 Cetirizine HCl [Zyrtec] 10 mg PO DAILY 12/03/15 02/09/18 Fluticasone Nasal [place] [Flonase 2 spray EA NOSTRIL DAILY 12/03/15 02/09/18 Nasal [place]] Gabapentin [Neurontin] 300 mg PO TID PRN 12/03/15 02/09/18 Omeprazole 20 mg PO DAILY 12/03/15 02/09/18 Albuterol Inhaler [Ventolin Hfa 2 puff INHALATION RT-QID PRN 06/16/16 02/09/18 Inhaler] L.acidoph,Paracasei, B.lactis 1 cap PO BID 06/16/16 02/09/18 [Probiotic] Baclofen [Lioresal] 10 mg PO BID 08/26/17 02/09/18 Clotrimazole/Betamethasone Dip 1 applic TOPICAL DAILY PRN 08/26/17 02/09/18 [Lotrisone Cream] Ondansetron [Zofran] 4 mg PO Q8HR PRN 08/26/17 02/09/18 traMADol HCL [Ultram] 50 - 100 mg PO Q8H PRN 08/26/17 02/09/18 Albuterol Nebulized [Ventolin 2.5 mg INHALATION RT-QID 02/09/18 02/09/18 Nebulized] Indomethacin [Indocin] 50 mg PO BID 02/09/18 02/09/18 Previous Rx's Medication Instructions Recorded Ondansetron Odt [Zofran Odt] 4 mg PO Q8HR PRN #12 tab 02/09/18 predniSONE 50 mg PO DAILY #4 tab 08/03/18 Allergies Allergy/AdvReac Type Severity Reaction Status Date / Time No Known Allergies Allergy Verified 08/03/18 14:29 Review of Systems ROS Statement: Those systems with pertinent positive or pertinent negative responses have been documented in the HPI. ROS Other: All systems not noted in ROS Statement are negative. Past Medical History Past Medical History: Asthma, Osteoarthritis (OA) Additional Past Medical History / Comment(s): diverticulitis, spinal OA, arthritis in right knee, hips and hands History of Any Multi-Drug Resistant Organisms: None Reported Past Surgical History: Hernia Repair Additional Past Surgical History / Comment(s): Hernia repair as an infant Past Anesthesia/Blood Transfusion Reactions: No Reported Reaction Past Psychological History: No Psychological Hx Reported Smoking Status: Former smoker Past Alcohol Use History: Occasional Past Drug Use History: None Reported - Past Family History Mother Family Medical History: Asthma, Cancer, Hypertension Additional Family Medical History / Comment(s): Mother has hx of colon and rect al cancer Father Family Medical History: Hypertension General Exam - General Exam Comments Initial Comments: Constitutional: NAD, AOX3, Pt has pleasant affect. HEENT: NC/AT, trachea midline, neck supple, no lymphadenopathy. Posterior pharynx non erythematous, without exudates. External ears appear normal, without discharge. Mucous membranes moist. Eyes PERRLA, EOM intact. There is no scleral icterus. No pallor noted. Cardiopulmonary: RRR, no murmurs, rubs or gallops, no JVD noted. Lungs CTAB in anterior and posterior coulter. No peripheral edema. Abdominal exam: Abdomen soft and non-distended. Abdomen non-tender to palpation in all 4 quadrants. Bowel sounds active in LLQ. No hepatosplenomegaly. No ecchymosis Neuro: CN II-XII grossly intact. No nuchal rigidity. MSK: 5/5 strength psoas and quadriceps. Patellar and achillies reflex 2/4 bilaterally. No midline tenderness cervical, thoracic, lumbar. Mild amount of R paralumbat tenderness. Pt ambulatory with antalgic gait. No posterior calf tenderness bilaterally, homans sign negative bilaterally. Posterior tibialis and radial pulse +2 bilaterally. Sensation intact in upper and lower extremities. Full active ROM in upper and lower extremities, 5/5 stregnth. Limitations: no limitations Course Vital Signs 08/03/18 14:27 Temperature 97.7 F Pulse Rate 110 H Respiratory 16 Rate Blood Pressure 114/81 O2 Sat by Pulse 97 Oximetry Medical Decision Making - Medical Decision Making 43-year-old male patient past medical history of chronic back pain, arthritis presents ED after exacerbation of chronic back pain. Patient points that he was carrying a 50 pound bag when he slipped, strained his back. This occured approximately 3 days ago. Patient states that he has had right paralumbar stiffness, pain extending into his posterior thigh. Patient was this is similar to back pain exacerbations in the past. Patient denies falling to the ground during this incident, had no trauma to head or neck. Patient denies any IV drug use, fevers chills, loss of bowel or bladder control, saddle anesthesia, or extremity weakness. Patient's is ambulatory with pain. Pt VSS, afebrile. Physical exam displayed: 5/5 strength psoas and quadriceps. Patellar and achillies reflex 2/4 bilaterally. No midline tenderness cervical, thoracic, lumbar. Mild amount of R paralumbat tenderness. Pt ambulatory with antalgic gait. Pt improved with toradol, prednisone. Plain films lumbar spine displayed multilevel hypertrophic changes. Pt to be discharged will follow up with primary care provider and orthopedic surgeon 1-2 days. Patient is discharged with prednisone and ibuprofen. Patient returned ER if new symptoms develop or if condition worsens tonight. Case discussed with Dr. Kidd. Disposition Clinical Impression: Lumbar back sprain Disposition: HOME SELF-CARE Condition: Stable Instructions (If sedation given, give patient instructions): Acute Low Back Pain (ED), Chronic Back Pain (ED) Additional Instructions: Patient to adhere to previously discussed treatment plan and will take medication(s) as directed. Patient to follow up with PCP in 1-2 days. Patient to return to ED if symptoms do not improve. Please follow-up with orthopedic consult and primary care provider in 1-2 days. Please take prednisone as prescribed. Please take pain medication as needed. Return to ER if condition worsens. Prescriptions: predniSONE 50 mg PO DAILY #4 tab Is patient prescribed a controlled substance at d/c from ED?: No Referrals: Tio Rosales MD [Primary Care Provider] - 1-2 days Carmelo Malone MD [STAFF PHYSICIAN] - 1-2 days
[2018-08-03] MEDS ORDERED: ACET/COD 300 MG/30 MG STARTER PACK 6 TAB BTL PO STA (15:56)
== END 2018-08-03 16:27 | disposition home or self-care (01) ==
LOC: EC 14:15
DX: S33.5XXA Sprain of ligaments of lumbar spine, initial encounter (principal); J45.909 Unspecified asthma, uncomplicated; Z79.51 Long term (current) use of inhaled steroids; Z79.899 Other long term (current) drug therapy; Z87.891 Personal history of nicotine dependence; W18.40XA Slipping, tripping and stumbling without falling, unspecified, initial encounter
CPT/HCPCS: 72100; 99284; 96372; J1885; J7512

== ENCOUNTER → 2018-09-20 | Outpatient (CLI) | payer OTHER ==
--- NOTE | 2018-09-20 16:22 | XR ---
EXAMINATION TYPE: XR knee limited RT DATE OF EXAM: 09/20/2018 COMPARISON: NONE HISTORY: Pain TECHNIQUE: 2 views are submitted FINDINGS: There is mild narrowing of the medial compartment knee joint. No erosive change. No acute f racture. IMPRESSION: Mild arthritic change. Consider MRI.
--- NOTE | 2018-09-20 16:36 | XR ---
EXAM TYPE: LUMBAR SPINE X RAY SERIES COMPARISON: 08/03/2018 HISTORY: Pain TECHNIQUE: 3 views are submitted. FINDINGS: Alignment is anatomic. The pedicles are intact. The transverse processes are intact. There is no spon dylolysis or spondylolisthesis. Hypertrophic changes are seen with anterior spur formation. Most nota azar T11-T12. Suggestion of facet arthropathy L5-S1 no compression deformities. IMPRESSION: 1. There again appears to be multilevel hypertrophic changes. Could not exclude a spondylolysis or ar thropathy of L5. No spondylolisthesis. Recommend follow-up MRI.
[2018-09-22 09:08] LABS: Cyclic Citrullinated Pep IgG 4
== END | disposition home or self-care (01) ==
LOC: RADXRMAIN 15:39
PROVIDERS: ATTEND Family Medicine
DX: M17.11 Unilateral primary osteoarthritis, right knee (principal); M54.5 Low back pain; M25.561 Pain in right knee
CPT/HCPCS: 36415; 72100; 86200

== ENCOUNTER → 2018-11-02 | Outpatient (CLI) | payer OTHER ==
--- NOTE | 2018-11-03 07:57 | MR ---
EXAMINATION TYPE: MR lumbar spine wo/w con DATE OF EXAM: 11/02/2018 COMPARISON: Outside MRI June 05, 2017 HISTORY: lumbar disc disease per order. Pain for 5 years going into right thigh per patient. TECHNIQUE: Multiplanar, multisequence images of the lumbar spine is performed without and with IV contrast, util izing 10 mL intravenous Gadavist FINDINGS: Sagittal images of the lumbar spine show vertebral body heights and alignment to remain sat isfactory. Multilevel disc desiccation is redemonstrated with mild disc space narrowing L1-L2 level. The conus medullaris remains stable in position and signal ending superior L2 level. Small hemangiom a L1 vertebral body level is redemonstrated sagittal image 7. No suspicious postcontrast enhancement is seen. Mild multilevel anterior spurring is redemonstrated Axial images at the T12-L1 level remain within normal limits. Axial images at the L1-L2 level redemonstrate mild broad disc bulge and mild facet arthropathy but sp inal canal is preserved and bilateral neural foramina are patent. No significant change from prior. Axial images at L2-L3 level show mild broad disc bulge felt stable. Axial images at the L3-L4 level show mild to moderate broad disc bulge felt stable. Axial images at the L4-L5 level show mild to moderate broad disc bulge and mild facet arthropathy doc aterally. Spinal canal is preserved. Bilateral neural foramina are patent. Axial images at the L5-S1 level redemonstrate mild facet degenerative changes bilaterally. Spinal can al is preserved. Bilateral neural foramina are patent. No suspicious incidental retroperitoneal findings are seen. IMPRESSION: Mild multilevel degenerative changes in lumbar spine as detailed above, no significant ch nathalie or progression from prior MRI.
== END | disposition home or self-care (01) ==
LOC: RADMRIMAIN 08:06
PROVIDERS: ATTEND Family Medicine
DX: M48.061 Spinal stenosis, lumbar region without neurogenic claudication (principal); M51.36 Other intervertebral disc degeneration, lumbar region; M47.896 Other spondylosis, lumbar region; D18.09 Hemangioma of other sites
CPT/HCPCS: 72158; A9585

== ENCOUNTER → 2018-11-22 | Outpatient (CLI) | payer OTHER ==
--- NOTE | 2018-11-22 18:10 | MR ---
EXAMINATION TYPE: MR knee RT wo con DATE OF EXAM: 11/22/2018 COMPARISON: None HISTORY: Rt knee pain, osteoarthritis TECHNIQUE: Multiplanar, multisequence imaging of the right knee is performed without IV contrast. FINDINGS: MEDIAL MENISCUS: Anterior and posterior horns are intact without tear. LATERAL MENISCUS: Anterior and posterior horns are intact without tear. CRUCIATE LIGAMENTS: The anterior and posterior cruciate ligaments are intact and unremarkable. COLLATERAL LIGAMENTS: The medial collateral ligament and lateral collateral ligament complex are inta ct and unremarkable. EXTENSOR MECHANISM: Visualized quadriceps and patellar tendons are intact. EFFUSION: No significant suprapatellar joint effusion. POPLITEAL CYST: No popliteal/galeas cyst. TRICOMPARTMENT SPACES: Normal CARTILAGE: Maintained BONE MARROW SIGNAL: No focal abnormal marrow signal is appreciated. OTHER: Minimal joint fluid present. Minimal subcutaneous edema present anteriorly. IMPRESSION: No evident meniscal tear. Minimal joint effusion.
== END | disposition home or self-care (01) ==
LOC: RADMRIMAIN 15:53
PROVIDERS: ATTEND Family Medicine
DX: M25.461 Effusion, right knee (principal); M17.9 Osteoarthritis of knee, unspecified

== ENCOUNTER 2021-11-21 08:06 | Day surgery (SDC) | payer OTHER ==
[2021-11-21] MEDS ORDERED: diazePAM 5 MG TAB PO STA (09:00)
[2021-11-21 09:18] VITALS: TEMP 98.1
--- NOTE | 2021-11-21 12:24 | CT ---
EXAMINATION TYPE: CT myelogram cervical spine DATE OF EXAM: 11/21/2021 COMPARISON: Correlation myelogram injection 11/21/2021 HISTORY: 46-year-old male Neck pain TECHNIQUE: Contiguous axial scanning of the cervical spine performed after intrathecal administration of 10 mL Isovue N3 100 contrast material via lumbar access. Please refer to myelogram injection repo rt of the same day for further details. Coronal/sagittal reconstructions performed. CT DLP: 868.0 mGycm Automated exposure control for dose reduction was used. FINDINGS: No craniocervical junction, predental space widening, or prevertebral soft tissue swelling. Satisfactory opacification of the subarachnoid space. Some spillage into the basal cisterns. Straightening of the normal cervical lordosis with preserved alignment. Moderate disc/endplate degenerative change C5-C6 and C6-7 with disc space narrowing and discussed by complex formation. This results in moderate focal spinal canal stenosis at with narrowing of the gifty l and abutment of the cord. AP canal dimension of 8 mm at C5-C6 with indentation onto the ventral cord; and 7 mm at C6-C7 and pos sible mild cord impingement. Otherwise, no additional level herniation or spinal canal compromise. Scattered facet and uncovertebral joint arthropathy is present. At C3-C4, this results in mild right neuroforaminal stenosis. At C4-C5, this results in mild left neural foraminal stenosis. At C5-C6, this results in moderate right and claz-zh-deufprno left neural foraminal stenosis. At C6-C7, this results in a severe right and moderate to severe left foraminal stenosis. At C7-T1, changes result in a moderate left neuroforaminal stenosis. IMPRESSION: 1. MODERATE DISTENTION OF THE DEGENERATIVE CHANGE C5-C6 AND C6/C7 RESULTING IN MODERATE FOCAL SPINAL CANAL STENOSES AT BOTH OF THESE LEVELS. THERE IS INDENTATION ON THE VENTRAL CORD AT C5-C6 WITH AP CAN AL DIMENSION OF 8 MM. AT C6-C7, THERE IS AP CANAL DIMENSION OF 7 MM AND POSSIBLE MILD CORD IMPINGEMEN T. 2. ADDITIONAL SCATTERED FACET AND UNCOVERTEBRAL JOINT ARTHROPATHY. 3. VARIABLE NEUROFORAMINAL STENOSES OUTLINED ABOVE. MODERATE ON THE RIGHT AT C5-C6; SEVERE ON THE RIGHT AT C6-C7 AND MODERATE TO SEVERE ON THE LEFT; MODERATE ON THE LEFT AT C7-T1.
[2021-11-21 13:16] VITALS: BP 135/77; PULSE 81; RESP 14
--- NOTE | 2021-11-21 17:01 | FL ---
PROCEDURE: FL myelogram cervical via lumbar puncture DATE: 11/21/2021 CLINICAL HISTORY: 46-year-old male cervical spine pain COMPLICATIONS: None SEDATION: Oral sedation administered by nursing. The patient and the patient's vital signs were monitored by qu alified independent radiology personnel. TECHNIQUE: The procedure and potential risks were explained to patient and an informed consent was obtained with teach back. Site and side was verified. A time out was performed. The patient was placed prone on the fluoroscopy table and the L3-L4 level was localized and the skin was marked and was prepped and draped in the usual sterile fashion. Lidocaine was used for local anesthesia. Utilizing fluoroscopic guidance a 22-gauge standard spinal n eedle was placed through the skin and into the subarachnoid space. Clear CSF was visualized. At this time, total of 10 mL Isovue M300 contrast was administered into the subarachnoid space. The needle was removed. The table was manipulated to promote flow of contrast to the cervical spine. The patient tolerated the procedure well and then sent to CT satisfactory condition. The estimated blood loss was minimal. The patient's condition was unchanged following the procedure. Fluoroscopy time: 1 minute 3 seconds Total images: 5 IMPRESSION: Successful lumbar injection for cervical myelogram.
== END 2021-11-21 13:57 | disposition home or self-care (01) ==
LOC: RADPROMAIN 08:06
PROVIDERS: ATTEND Orthopaedic Surgery
DX: M47.812 Spondylosis without myelopathy or radiculopathy, cervical region (principal); M48.02 Spinal stenosis, cervical region; G89.29 Other chronic pain; Z79.1 Long term (current) use of non-steroidal anti-inflammatories (NSAID); Z79.899 Other long term (current) drug therapy; Z80.0 Family history of malignant neoplasm of digestive organs; Z79.51 Long term (current) use of inhaled steroids; Z87.891 Personal history of nicotine dependence; Z82.49 Family history of ischemic heart disease and other diseases of the circulatory system; Z82.5 Family history of asthma and other chronic lower respiratory diseases
CPT/HCPCS: 36415; 62302; 72126; Q9967; 62284